=== PATIENT | female | born 1980 | race Two or more races ===

== ENCOUNTER 2024-06-07 15:25 | Emergency (ER) | payer OTHER, SELFPAY ==
--- NOTE | 2024-06-07 15:28 | EKG_ITS ---
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
[2024-06-07 15:29] VITALS: BP 123/81; PULSE 90; RESP 16; TEMP 37.1; O2SAT 97
--- NOTE | 2024-06-07 15:29 | PD.EDADULT ---
ED General RME/HPI General Stated complaint: SYNCOPAL EPISODE Time Seen by Provider: 06/07/24 15:27 Arrival date/time: 06/07/24 15:25 RME / HPI RME / HPI narrative: Patient is a 44-year-old who was at home had a sudden onset of weak and dizziness and passed out for 15 seconds witnessed by family. They lowered her down there was no injury. After the event she woke up and vomited 1 time. Patient denies any chest pain no shortness of breath there is no injury or trauma. She has never had any history of syncope in the past. She did have a tooth extraction at 1030 this morning and was started on amoxicillin which she took approximately an hour before the syncopal event. There is no seizure activity noted. There is no other symptom. There is no fever cough runny nose. And in the ambulance bay she says she feels much better. Related Data Allergies Allergy/AdvReac Type Severity Reaction Status Date / Time No Known Allergies Allergy Verified 06/07/24 16:22 Review of Systems Review of Systems Narrative Review of Systems: Review of Systems: Constitutional: DENIES: Fevers,; Eyes: DENIES: Loss of vision, Head/Ear/Nose: DENIES: Loss of hearing. Throat: Denies dysphagia. Cardiovascular: Denies chest pain, Dyspnea o. Respiratory: DENIES: Shortness of breath, Gastrointestinal: DENIES: Rectal bleeding or melena. Genitourinary: DENIES: Dysuria (painful or difficult urination),; Musculoskeletal: DENIES: Arthralgia (pain in a joint),; Skin: DENIES: Rash,; Neurological: DENIES: loss of function or movement,; Psychiatric: DENIES: recent major life stressor, emotional problem, illicit drug use or abuse,; Endocrinology: DENIES: Weight change,; Hematologic/Lymphatic: DENIES: Abnormal bruising. Allergic/Immunologic: DENIES: Urticaria (hives), Past Medical History Social History SMOKING STATUS: Never smoker ED Exam Narrative Physical exam: Physical Exam: General: The vital signs were reviewed. The patient is non-toxic, in no apparent distress and appears healthy with a patent airway, no respiratory distress and has no apparent circulatory problems. Head & Scalp: Normocephalic, atraumatic. Face: Appears normal and is without lesions, deformity. Ears: Left external pinna appears normal. Right external pinna appears normal. Eyes: The sclera is anicteric. No obvious photophobia. The Left and Right Orbit/Lid/Conjunctiva appears normal without swelling, discoloration or injection. Nose: The nose is without deformity, discharge or tenderness; Throat: Appears normal. The mucous membranes are pink and moist without exudates, redness or mass seen. The tongue appears normal. Neck: The neck is supple and no apparent mass or adenopathy. Chest: The chest wall is normal in size and symmetry and has no chest wall tenderness or crepitus. The patient displays normal ventilator effort without retractions, accessory muscle use and has adequate air movement bilaterally with no wheezes and no rales. Cardiovascular: Regular rate and rhythm; No murmurs, rubs, or gallops; Gastrointestinal: The abdomen appears normal. No obvious hernias or mass. The abdomen is soft and benign, non-distended, with no pain, no guarding and no rebound tenderness. Bowel sounds are present and normal sounding. No CVA tenderness. Genitourinary: Back/Spine: Nontender Extremities/Musculoskeletal/lymphatic: The bilateral upper and lower extremities are warm. There is no evidence of arterial insufficiency. There is no evidence of venous insufficiency/edema. The patient spontaneously moves bilateral upper and lower extremities with no pain and no limitation of movement. There is no apparent, injury or trauma. Skin: The skin is warm, dry and intact. No rashes. No petechia. No purpura. No abnormal bruising. The color is appropriate with no cyanosis. Mental status/Psychiatric: Mental status is appropriate for age. The patient has no apparent delusions, visual hallucinations, no apparent audible hallucinations. The patient has no apparent suicidal thoughts/ideation and no apparent homicidal thoughts/ideation. Neurological: The patient is awake, alert, interactive, cordial, cooperative and is oriented to name and situation. The patient follows commands and answers historical question with no impairment. There is no visual disturbance apparent. The pupils are equal and reactive bilaterally with normal eye movements and no diplopia The bilateral upper and lower extremities have normal strength, normal range of motion and normal functioning. The gait, station and balance were not tested initially in the ambulance bay. Course Quality Measures none Orders Category Date Time Status EKG (ED ONLY) *Do not use* NOW Care 06/07/24 15:28 Completed EKG (ED Only) Stat Exams 06/07/24 15:28 Ordered XR chest 1V portable Stat Exams 06/07/24 15:28 Completed B-Type Natriuretic Peptide Stat Lab 06/07/24 16:01 Completed CBC Stat Lab 06/07/24 16:01 Completed Comprehensive Metabolic Panel Stat Lab 06/07/24 16:01 Completed Drug Screen,Urine Stat Lab 06/07/24 15:28 Ordered HCG Qualitative,Urine Stat Lab 06/07/24 15:28 Ordered Lactate (Lactic Acid) Stat Lab 06/07/24 16:01 Completed Lipase Stat Lab 06/07/24 16:01 Completed Magnesium Stat Lab 06/07/24 16:01 Completed Troponin I Stat Lab 06/07/24 16:01 Completed Urinalysis Stat Lab 06/07/24 15:28 Ordered Urinalysis, C/S if Indicated Stat Lab 06/07/24 15:28 Ordered Ringers Lactated 1000 ml [Lactated Ringers] 1,000 ml Med 06/07/24 15:27 Discontinued IV 999 mls/hr Vital Signs Vital signs: Vital Signs Temperature 98.7 F 06/07/24 15:29 Pulse Rate 90 06/07/24 15:29 Respiratory Rate 16 06/07/24 15:29 Blood Pressure 123/81 06/07/24 15:29 Pulse Oximetry (%) 97 06/07/24 15:29 Oxygen Delivery Method Room Air 06/07/24 15:29 [facility] Patient data External records reviewed:: [facility] previous records (Per EMR, no previous visits for review) and EMS form Clinical information provided by:: patient and EMS Social determinants that could affect healthcare access:: none Patient has the following chronic illnesses:: none reported How is presenting disease/condition affected by chronic disease/condition?: no chronic disease Evaluation data The following diagnostics were reviewed and interpreted by me:: lab results, radiology exam(s) and EKG tracing(s) (Twelve-lead EKG reveals normal sinus rhythm rate [address] elevation VT. QT intervals are within normal limits.) Lab and/or radiology exams considered but not ordered:: None Interpretation Summary: Ordering Physician: Heriberto Smith MD Date of Service: 06/07/24 Procedure(s): XR chest 1V portable Accession Number(s): [id number] cc: Gaetano Tucker MD; Heriberto Smith MD~ EXAMINATION: XR chest 1V portable ORDERING PROVIDER: Heriberto Smith MD HISTORY: CHEST PAIN TECHNIQUE: Single portable AP radiograph of the chest. COMPARISON: None. FINDINGS: Lines and Tubes: None. Lungs: Clear. Pleura: No pneumothorax or pleural effusion. Cardiomediastinal Silhouette: Normal. Soft Tissues/Bones: Normal. IMPRESSION: No acute pulmonary findings. Dictated By: Gaetano Tucker MD Signed By: <Electronically signed by Gaetano Tucker MD in OV> 06/07/241643 DD/ 42 TD/TT: 06/07/241642 Auxiliary Engineer: JAVED Medications Medications considered but not ordered:: none Medication administrations:: Medication Administration History Discontinued Medications Lactated Ringer's (Lactated Ringers) 1,000 mls @ 999 mls/hr IV .Q1H1M ONE Stop: 06/07/24 16:27 see above Consultations Consultation(s) initiated? (list below): No Diagnosis Differential Diagnosis ED Complaint MDM: suncope, adverse reaction to medication, anxiety, dehydration, anemia, VT Most likely diagnosis given after review of the tests above:: syncope Admission Indicated Admission indicated?: not indicated Explain why admission is indicated or not indicated:: This can be worked up as an outpatient patient probably had a vasovagal syncopal event but clinically is stable looks great Admission Request Was there a request for admission?: No Disposition Plan Disposition Plan: Discharge Discharge Attestation Discharge Attestation: The patient and all family members were given an opportunity to ask questions and understood the discharge instructions. Discharge instructions specifically effects, indications for sooner follow up or return to the emergency department, and the expected course of current diagnosis. Patient condition: Stable Medical Decision Making MDM Narrative MDM Narrative: Patient had a 15-second episode of loss of consciousness and a syncopal event witnessed by family. She has no injury. She has no sequelae other than vomiting after the event. She had no precipitating symptoms there was no nausea vomiting diarrhea. There is no previous history of syncope. She has no known cardiac problem there is no GI bleeding by history. The cause of her syncope is unclear at this time and we will do a medical workup and reevaluate. Patient was observed in room 27 in the hallway as we had no other beds in. She was comfortable throughout the whole time her white count came back at 10.9 hemoglobin 16.8. Electrolytes came back normal kidney function was normal glucose 107 lactic acid 1.7 AST total bilirubin within normal limits troponin was negative BNP was negative Chest x-ray reveals no infiltrates no effusion normal heart. Patient had no further symptoms feels good wants to go home. She got up and ambulate without any difficulty. She knows no driving no rough work no climbing on ladders will follow-up with her doctor to 3 days and return if getting worse in any way. Differential Diagnosis Differential Diagnosis: suncope, adverse reaction to medication, anxiety, dehydration, anemia, VT Lab Data 06/07/24 16:01 06/07/24 16:01 Labs: Lab Results 06/07/24 Range/Units 16:01 WBC 10.9 (3.6-11.0) Thou/mm3 RBC 5.31 H (4.00-5.20) Miln/mm3 Hgb 16.8 H (12.0-16.0) g/dL Hct 47.3 H (36.0-46.0) % MCV 89 (80-100) fL MCH 31.6 (25.0-35.0) pg MCHC 35.5 (31.0-37.0) g/dl RDW Std Deviation 41.8 (36.4-46.3) fL Plt Count 340 (140-440) Thou/mm3 Neut % (Auto) 67 (37-80) % Lymph % (Auto) 21 (10-50) % Louisa % (Auto) 10 (0-12) % Eos % (Auto) 2 (0-10) % Baso % (Auto) 1 (0-2.5) % Neut # (Auto) 7.3 (1.8-7.7) Thou/mm3 Lymph # (Auto) 2.2 (1.0-4.8) Thou/mm3 Louis[place] # (Auto) 1.1 H (0.0-0.8) Thou/mm3 Eos # (Auto) 0.2 (0.0-0.5) Thou/mm3 Baso # (Auto) 0.1 (0.0-0.2) Thou/mm3 Immature Gran # (Auto) 0.02 H (0.00-0.00) Thou/mm3 Absolute Nucleated RBC 0.00 (0.00-0.00) Thou/mm3 Immature Gran % 0 (0-0) % Nucleated RBC % 0 (0) /100 WBC Sodium 136 (136-145) mMol/L Potassium 4.0 (3.4-5.1) mMol/L Chloride 100 (98-107) mMol/L Carbon Dioxide 23.2 (20.0-31.0) mMol/L Anion Gap 13 (7-16) BUN 13 (9-23) mg/dL Creatinine 1.0 (0.6-1.3) mg/dL Estim Creat Clear Calc 65.2 (>60) mL/min eGFR > 60 (60 - ) See Note BUN/Creatinine Ratio 13 (12-20) Ratio Glucose 107 H (74-106) mg/dL Calculated Osmolality 272 L (275-295) Lactic Acid 1.7 (0.4-2.0) mMol/L Calcium 10.1 (8.3-10.6) mg/dL Corrected Calcium 10.1 (8.5-10.1) mg/dL Magnesium 2.0 (1.6-2.6) mg/dL Total Bilirubin 0.6 (0.3-1.2) mg/dL AST 23 (0-34) U/L ALT 36 (10-49) U/L Alkaline Phosphatase 127 H (46-116) U/L Troponin I < 0.002 (0.0-0.045) ng/mL B-Natriuretic Peptide < 20 (0-100) pg/mL Total Protein 7.8 (5.7-8.2) gm/dL Albumin 5.1 H (3.5-5.0) gm/dL Globulin 2.7 (2.3-3.5) gm/dL Albumin/Globulin Ratio 1.9 (1.2-2.2) Lipase 42 (12-53) U/L Discharge Plan Plan Patient Disposition: HOME (Self Care) Problem List Clinical Impression: Syncope, H/O tooth extraction Patient/Caregiver Discharge Instructions Education Materials: ED Dizziness or Syncope ... Additional Instructions: You had an episode of passing out or syncope. The cause of this for you is uncertain. Your medical workup today revealed the chest x-ray and EKG which were entirely normal your heart enzymes were negative. And your symptoms have resolved after observation here. As they discussed no driving no climbing on ladders no rough work and stay on ground level and please return if you have another episode of passing out. See your doctor in 2 to 3 days. At that point that your doctor reevaluate you decide if you are safe to drive. Make sure you hydrate yourself well. Follow the advice of your dentist and take the antibiotics as written. If you are having cramps or getting worse in any way call your dentist or return for reevaluation. Print Language: Bulgarian Stand Alone Forms: Patient Portal Info Letter
[2024-06-07 16:19] VITALS: PULSE 84; RESP 18; BMI 28.9
[2024-06-07 16:25] LABS: Lactate (Lactic Acid) 1.7 mMol/L (0.4-2.0)
[2024-06-07 16:29] LABS: Basophils # (Auto) 0.1 Thou/mm3 (0.0-0.2); Basophils % (Auto) 1 % (0-2.5); Eosinophils # (Auto) 0.2 Thou/mm3 (0.0-0.5); Eosinophils % (Auto) 2 % (0-10); Hematocrit 47.3 % (36.0-46.0); Hemoglobin 16.8 g/dL (12.0-16.0); Immature Granulocytes % (Auto) 0 % (0-0); Immature Granulocytes Auto 0.02 Thou/mm3 (0.00-0.00); Lymphocytes # (Auto) 2.2 Thou/mm3 (1.0-4.8); Lymphocytes % (Auto) 21 % (10-50); Mean Corpuscular HGB Conc 35.5 g/dl (31.0-37.0); Mean Corpuscular Hemoglobin 31.6 pg (25.0-35.0); Mean Corpuscular Volume 89 fL (80-100); Monocytes # (Auto) 1.1 Thou/mm3 (0.0-0.8); Monocytes % (Auto) 10 % (0-12); Neutrophils # (Auto) 7.3 Thou/mm3 (1.8-7.7); Neutrophils % (Auto) 67 % (37-80); Nucleated Red Blood Cell % 0 /100 WBC (0); Platelet Count 340 Thou/mm3 (140-440); RDW Standard Deviation 41.8 fL (36.4-46.3); Red Blood Count 5.31 Miln/mm3 (4.00-5.20); White Blood Count 10.9 Thou/mm3 (3.6-11.0)
[2024-06-07 16:41] LABS: B-Type Natriuretic Peptide < 20 pg/mL (0-100)
[2024-06-07 16:42] LABS: Alanine Aminotransferase 36 U/L (10-49); Albumin, Serum 5.1 gm/dL (3.5-5.0); Albumin/Globulin Ratio 1.9 (1.2-2.2); Alkaline Phosphatase 127 U/L (46-116); Anion Gap 13 (7-16); Aspartate Amino Transferase 23 U/L (0-34); BUN/Creatinine Ratio 13 Ratio (12-20); Bilirubin,Total 0.6 mg/dL (0.3-1.2); Blood Urea Nitrogen 13 mg/dL (9-23); Calcium 10.1 mg/dL (8.3-10.6); Calcium (Corrected) 10.1 mg/dL (8.5-10.1); Carbon Dioxide 23.2 mMol/L (20.0-31.0); Chloride 100 mMol/L (98-107); Estimated Creatinine Clearance 65.2 mL/min (>60); Globulin 2.7 gm/dL (2.3-3.5); Glucose 107 mg/dL (74-106); Lipase 42 U/L (12-53); Osmolality,Calculated 272 (275-295); Sodium 136 mMol/L (136-145); Total Protein 7.8 gm/dL (5.7-8.2); Troponin I < 0.002 ng/mL (0.0-0.045); eGFR > 60 See Note
== END 2024-06-07 19:00 | disposition home or self-care (01) ==
LOC: SERX 18:11
PROVIDERS: Emergency Provider Emergency Medicine; PCP Family Medicine
DX: R55 Syncope and collapse (principal); R07.9 Chest pain, unspecified; K08.409 Partial loss of teeth, unspecified cause, unspecified class
CPT/HCPCS: 36415; 71045; 80053; 80307; 81001; 81025; 83605; 83690; 83735; 83880; 84484; 85025; 93005; 99283

== ENCOUNTER 2024-11-05 02:23 | Emergency (ER) | payer OTHER, SELFPAY ==
--- NOTE | 2024-11-05 02:28 | EDNOTE_ITS ---
ED Arrhythmia Palp. RME/HPI General Chief Complaint: Arrhythmia/Palpitations Stated Complaint: PALPITATIONS,HYPERTENSION Time Seen by Provider: 11/05/24 02:40 Arrival date/time: 11/05/24 02:23 RME / HPI RME / HPI narrative: This section includes all my notes and documentations, including HPI, PE, and ED course. 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 No other complaints. ROS: All negative except as documented in HPI. Physical Exam: General: Alert and oriented. Apears anxious. High BP noted. Eyes: Conjunctivae and lids clear. PERRL. EOMI. ENT: No nasal congestion. Neck: Supple. No carotid bruit. No JVD. Heart: Sinus tachycardia noted. Lungs: No respiratory distress. Good air movement. No rhonchi, wheezing, rales. Abdomen: Soft and nontender. Legs: Edema noted. Skin: Warm and dry. Neuro: Alert and oriented X 3. CN 2-12 grossly normal. No peripheral motor deficits. I reviewed EMS notes. I reviewed all diagnostic test results: My interpretation of the EKG is: Sinus tachycardia (120 bpm) with nonspecific ST-T changes. My interpretation of the chest x-ray is NAD. My review of the Chest CTA report is: NAD. My review of the Head/Brain CT report is: NAD. My review of the Venous Doppler LE US report is: NAD. Blood tests and urine tests unremarkable. At this point, diagnoses include: Hypertensive emergency. Treatment here included: Xanax 0.5 mg, Catapres 0.3 mg, Lopressor 100 mg, IVF. Significant improvement noted. Recommended outpatient management. Discharge instructions from Dr. Reed: 1. After extensive evaluation, there is no life-threatening condition.? Such as stroke or brain tumor or heart attack or pulmonary embolism (blood clots in your lungs) or pneumothorax (collapsed lung). 2. To prevent future heart attacks and strokes, take all your more morning BP medications starting tomorrow morning. 3. Take Clonidine 0.1 mg pill(s) every 12 hours as needed based on SBP (higher number of BP). SBP > 140, take one pill. SBP > 160, take two pills. SBP > 180, take three pills. SBP > 200, take four pills. 4. Xanax for anxiety. But only 2-3 times per week to prevent dependence. 5. See a private doctor on 11/08/2024 for recheck and further care. Ask to review all test results and official radiology reports, to make sure you receive all necessary follow-ups and monitoring. To make sure there is no serious underlying heart condition, ask to help you get more tests for your heart that cannot be done here in the ER.? Such as Holter Monitor (cardiac monitoring at home from a day to even a month), heart stress test (on treadmill or with medication), echocardiogram (imaging of your heart structures), heart catherization (checking for blockages in your heart arteries), and a referral to see a Seed Collector.? 6. Seek immediate medical care with worsening or with any concerns.?? Jesus Reed MD Related Data Previous Rx's ?Medication ?Instructions ?Recorded alprazolam 0.5 mg tablet (Xanax) 0.5 mg PO BID PRN anx iety #20 tabs 11/05/24 clonidine HCl 0.1 mg tablet 0.1 mg PO BID #60 tabs 11/22 Allergies Allergy/AdvReac Type Severity Reaction Status Date / Time No Known Allergies Allergy Verified 11/05/24 02:33 Review of Systems Review of Systems Systems Reviewed: All systems reviewed, normal except as documented Past Medical History Past Medical History CARDIAC: Positive Cardiac Disorders and Hypertension Social History SMOKING STATUS: Never smoker ED Exam Narrative Physical exam: Refer to HPI Course Course Course Narrative: CXR is ordered for determining the etiology of shortness of breath. Quality Measures none Arrhythmia/Palpitations MDM Narrative MDM Narrative:: Scribe Attestation: I, Maria Luz Lynn, am scribing for and in the presence of Dr. Reed. Provider Notation: Although this document has been carefully reviewed, there may still be some phonetic and other typographical errors.? These errors are purely grammatical due to imperfections in the software program and should not be construed in any way to? compromise the substance of the patient's medical care during this visit. 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 No other complaints. Patient data External records reviewed:: [facility] previous records (Reviewed prior ED records from 06/07/24. Patient was seen for H/O tooth extraction.) and EMS form Clinical information provided by:: patient and EMS Social determinants that could affect healthcare access:: none Patient has the following chronic illnesses:: None reported How is presenting disease/condition affected by chronic disease/condition?: no chronic disease Evaluation data The following diagnostics were reviewed and interpreted by me:: lab results, radiology exam(s) and EKG tracing(s) (My interpretation of the EKG is: Sinus tachycardia (120 bpm) with nonspecific ST-T changes. Jesus Reed MD) Lab and/or radiology exams considered but not ordered:: None Interpretation Summary: I reviewed all diagnostic test results: My interpretation of the EKG is: Sinus tachycardia (120 bpm) with nonspecific ST-T changes. My interpretation of the chest x-ray is NAD. My review of the Chest CTA report is: NAD. My review of the Head/Brain CT report is: NAD. My review of the Venous Doppler LE BI US report is: NAD. Blood tests and urine tests unremarkable. Medications / Prescriptions Medications or Prescriptions considered but not ordered:: None Medication administrations:: Xanax 0.5 mg, Catapres 0.3 mg, Lopressor 100 mg, IVF. Consultations Consultation(s) initiated? (list below): No Diagnosis Differential diagnosis arrhythmia/palpitations: palpitations, anxiety, sinus tachycardia, artial fibrillation, artial flutter, ventricular premature beats, supraventricular tachycardia and ventricular tachycardia Most likely diagnosis given after review of the tests above:: Hypertensive emergency Admission Indicated Admission indicated?: not indicated Explain why admission is indicated or not indicated:: With significant improvement, admission not indicated. Admission Request Was there a request for admission?: No Disposition Plan Disposition Plan: Discharge Discharge Attestation Discharge Attestation: The patient and all family members were given an opportunity to ask questions and understood the discharge instructions. Discharge instructions specifically effects, indications for sooner follow up or return to the emergency department, and the expected course of current diagnosis. Patient condition: Stable Discharge Plan Plan Patient Disposition: HOME (Self Care) Prescriptions/Referrals Prescriptions/Med Rec: New clonidine HCl 0.1 mg tablet 0.1 mg PO BID Qty: 60 0RF alprazolam [Xanax] 0.5 mg tablet 0.5 mg PO BID PRN (Reason: anxiety) Qty: 20 0RF Referrals: Lambert Bui MD [Primary Care Provider] - In 1 week Problem List Clinical Impression: Hypertensive emergency Patient/Caregiver Discharge Instructions Discharge Activity: activity as tolerated Education Materials: ED Hypertension, Established Additional Instructions: Discharge instructions from Dr. Reed: 1. After extensive evaluation, there is no life-threatening condition.? Such as stroke or brain tumor or heart attack or pulmonary embolism (blood clots in your lungs) or pneumothorax (collapsed lung). 2. To prevent future heart attacks and strokes, take all your more morning BP medications starting tomorrow morning. 3. Take Clonidine 0.1 mg pill(s) every 12 hours as needed based on SBP (higher number of BP). SBP > 140, take one pill. SBP > 160, take two pills. SBP > 180, take three pills. SBP > 200, take four pills. 4. Xanax for anxiety. But only 2-3 times per week to prevent dependence. 5. See a private doctor on 11/08/2024 for recheck and further care. Ask to review all test results and official radiology reports, to make sure you receive all necessary follow-ups and monitoring. To make sure there is no serious underlying heart condition, ask to help you get more tests for your heart that cannot be done here in the ER.? Such as Holter Monitor (cardiac monitoring at home from a day to even a month), heart stress test (on treadmill or with medication), echocardiogram (imaging of your heart structures), heart catherization (checking for blockages in your heart arteries), and a referral to see a Seed Collector.? 6. Seek immediate medical care with worsening or with any concerns.?? Print Language: Swedish Stand Alone Forms: Nancy Award Info., Patient Portal Info Letter
[2024-11-05 02:30] VITALS: PULSE 127
--- NOTE | 2024-11-05 02:32 | EKG_ITS ---
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
[2024-11-05 02:33] VITALS: BMI 32.1
--- NOTE | 2024-11-05 02:37 | XR_ITS ---
Examination: AP chest single view Technique one AP portable upright chest single view Date and time: November 15, 2024 0324 hours INDICATIONS: Shortness of breath chest pain today. FINDINGS: Left cardiac apex fat pad. Normal heart size The osseous structures are intact No pneumonia or pulmonary edema IMPRESSION: No pneumonia or pulmonary edema
--- NOTE | 2024-11-05 02:37 | XR_ITS ---
Examination: CT brain head without contrast. 2-D sagittal coronal reconstructions Date and time of exam:October, 2024, 0425 hours INDICATIONS: High blood pressure today with head pain CTDI: vol (mGy):48 DLP: (mGycm):990 Technique: Multiple CT axial sections of the brain have been obtained, 5 mm slice thickness. Contrast has not been administered. 2-D sagittal, coronal reconstructions have been obtained Low dose protocols were performed. One or more of the following dose reduction techniques were used; automated exposure control, adjustment of the mA and/or KV according to patient size, use of iterative reconstruction technique. Findings: No significant ventricular enlargement. Intra-axial or extra-axial hemorrhage density is not seen. No mass effect or midline shift Basal cisterns are not remarkable. Fourth ventricle is midline. Cranial vault intact. Impression: Negative for acute hemorrhage, mass effect or midline shift Moderate bilateral chronic mastoiditis
--- NOTE | 2024-11-05 02:38 | XR_ITS ---
Examination: CTA chest with intravenous contrast 2-D reconstructions 3-D reconstructions, vascular Date and time of exam: November 05, 2024 0436 hours INDICATION: Chest pain and cardiac palpitations shortness of breath today CTDI: vol (mGy) 35.36. DLP: (mGycm) 611. Technique: Multiple axial sections of the thorax have been obtained. 3 mm slice thickness, from below the hemidiaphragms to above the apices of the lungs. Mediastinal and lung density settings have been obtained. 2-D sagittal and coronal reconstructions. 3-D angiographic renderings, 3-D volume renderings, 3D post processing, vascular maximum intensity projections obtained. Contrast administered is 100 cc Isovue 370. Low dose protocols were performed. One or more of the following dose reduction techniques were used; automated exposure control, adjustment of the mA and/or KV according to patient size, use of iterative reconstruction technique. Findings: No thoracic aortic aneurysm dilatation or dissection. No pulmonary artery filling defects No mediastinal lymphadenopathy. No pneumonia or pulmonary edema or pleural disease No visualized liver splenic lesion No gallstones No pancreatic or adrenal mass Kidneys partially visualized no hydronephrosis IMPRESSION: Negative for pulmonary artery emboli No pneumonia or pulmonary edema or pleural disease
--- NOTE | 2024-11-05 02:39 | XR_ITS ---
Examination: Venous duplex lower extremity sonogram, bilateral. Date and time of exam: November 15, 2024 0301 hours INDICATIONS: Leg edema and elevated d-dimer today Technique: Multiple sonographic images of the deep venous system have been obtained. B-mode/2-D grayscale imaging of vascular structures and Doppler spectral analysis (waveforms) and color performed Both legs are examined. Findings: Deep venous systems do not demonstrate abnormal echogenicity. All visualized deep veins exhibit compressibility. All visualized deep veins exhibit augmentation. Impression: Negative for deep vein thrombosis
[2024-11-05 02:44] VITALS: BP 178/119; BP 199/129; PULSE 125; RESP 19; TEMP 37; O2SAT 100
[2024-11-05 02:54] LABS: Basophils # (Auto) 0.1 Thou/mm3 (0.0-0.2); Basophils % (Auto) 1 % (0-2.5); Eosinophils # (Auto) 0.3 Thou/mm3 (0.0-0.5); Eosinophils % (Auto) 3 % (0-10); Hematocrit 41.8 % (36.0-46.0); Hemoglobin 15.0 g/dL (12.0-16.0); Immature Granulocytes Auto 0.02 Thou/mm3 (0.00-0.00); Lymphocytes # (Auto) 3.3 Thou/mm3 (1.0-4.8); Lymphocytes % (Auto) 34 % (10-50); Mean Corpuscular HGB Conc 35.9 g/dl (31.0-37.0); Mean Corpuscular Hemoglobin 32.4 pg (25.0-35.0); Mean Corpuscular Volume 90 fL (80-100); Monocytes # (Auto) 0.8 Thou/mm3 (0.0-0.8); Monocytes % (Auto) 8 % (0-12); Neutrophils # (Auto) 5.1 Thou/mm3 (1.8-7.7); Neutrophils % (Auto) 54 % (37-80); Nucleated Red Blood Cell # 0.00 Thou/mm3 (0.00-0.00); Nucleated Red Blood Cell % 0 /100 WBC (0); Platelet Count 270 Thou/mm3 (140-440); RDW Standard Deviation 43.5 fL (36.4-46.3); Red Blood Count 4.63 Miln/mm3 (4.00-5.20); White Blood Count 9.6 Thou/mm3 (3.6-11.0)
[2024-11-05 03:04] VITALS: BP 178/119; PULSE 125
[2024-11-05] MEDS: METOPROLOL TARTRATE 25 MG TABLET 100 MG PO (03:04)
[2024-11-05 03:05] VITALS: BP 178/119; PULSE 125
[2024-11-05] MEDS: SODIUM CHLORIDE 0.9% 1000 ML 1,000 ML 999 ML IV (03:07)
[2024-11-05 03:08] LABS: INR 1.0 (0.9-1.3); Partial Thromboplastin Time 28.5 Seconds (22.0-36.0); Prothrombin Time 11.1 Seconds (9.0-12.2)
[2024-11-05 03:15] LABS: Alanine Aminotransferase 21 U/L (10-49); Albumin, Serum 4.7 gm/dL (3.5-5.0); Albumin/Globulin Ratio 2.0 (1.2-2.2); Alkaline Phosphatase 124 U/L (46-116); Anion Gap 11 (7-16); Aspartate Amino Transferase 15 U/L (0-34); BUN/Creatinine Ratio 15 Ratio (12-20); Bilirubin,Direct 0.2 mg/dL (0.0-0.3); Bilirubin,Total 0.7 mg/dL (0.3-1.2); Blood Urea Nitrogen 12 mg/dL (9-23); Calcium 9.4 mg/dL (8.3-10.6); Calcium (Corrected) 9.4 mg/dL (8.5-10.1); Carbon Dioxide 22.0 mMol/L (20.0-31.0); Chloride 108 mMol/L (98-107); Creatinine (Component) 0.8 mg/dL (0.6-1.3); Estimated Creatinine Clearance 82.6 mL/min (>60); Free T4 (Free Thyroxine) 1.31 ng/dL (0.89-1.76); Globulin 2.3 gm/dL (2.3-3.5); Glucose 113 mg/dL (74-106); Magnesium 1.9 mg/dL (1.6-2.6); Osmolality,Calculated 281 (275-295); Potassium 3.5 mMol/L (3.4-5.1); Sodium 141 mMol/L (136-145); Thyroid Stimulating Hormone 2.19 uIU/mL (0.55-4.78); Total Protein 7.0 gm/dL (5.7-8.2); Troponin I < 0.002 ng/mL (0.0-0.045); eGFR > 60 See Note
[2024-11-05 03:21] LABS: HCG,Qualitative Serum Negative
[2024-11-05 03:36] LABS: D-Dimer < 250 ng/mL (<600)
--- NOTE | 2024-11-05 03:55 | PRELIM_ITS ---
Bilateral lower extremity venous Doppler ultrasound. November 05, 2024 0301 hours Clinical history: EDEMA HIGH DIMER Comparison: None Findings: Mckenzie scale, color flow and spectral Doppler evaluation of the Bilateral lower extremity deep veins were performed. The greater saphenous vein confluence, common femoral, femoral, popliteal and calf veins are patent and compressible. Normal respiratory variation is noted. There is no evidence of occlusive or nonocclusive thrombus. No fluid collection is demonstrated on the submitted images. Impression: No sonographic evidence of deep venous thrombosis in bilateral lower extremities. Report Electronically Signed By: Michele Burns 11/05/2024 3:55:09 AM [EST]
[2024-11-05 03:56] LABS: B-Type Natriuretic Peptide < 20 pg/mL (0-100)
[2024-11-05 04:21] LABS: Collection Type, Urine Clean Catch
[2024-11-05 04:44] LABS: Bilirubin,Urine Negative (Negative); Blood,Urine Negative (Negative); Clarity,Urine Clear (Clear/Hazy); Color,Urine Colorless (Lt Yel-Yel); Culture Indicated,Urine Not Indicated; Glucose, Urine Negative (Negative); Ketones,Urine Negative (Negative); Leukocyte Esterase,Urine Positive (Negative); Nitrite,Urine Negative (Negative); PH,Urine 6.5 (5.0-7.0); Protein,Urine Negative (Neg - Trace); RBC,Urine 1 /hpf (0-3); Specific Gravity,Urine 1.009 (1.001-1.035); Squamous Epithelial Cell,Urine < 1 /hpf (0-5); Urobilinogen,Urine Negative mg/dL (0.0-1.0); WBC,Urine 3 /hpf (0-5)
[2024-11-05 04:52] VITALS: BP 147/91; PULSE 84; RESP 16; TEMP 37.1; O2SAT 99
--- NOTE | 2024-11-05 05:00 | PRELIM_ITS ---
CT angiogram of the chest with intravenous contrast (axial sections with sagittal and coronal reformats) November 05, 2024 0426 hours Clinical History: Shortness of breath, chest pain, palpitations Technique:Helical axial sections with sagittal and coronal reformats of the chest were obtained with intravenous contrast. Iterative reconstruction technique was employed to reduce patient radiation exposure. 3D/MIP reconstructed images were also provided. Findings: There is no filling defect within the pulmonary artery divisions to suggest pulmonary thromboembolism. The mediastinum demonstrates no evidence of mass or lymphadenopathy. The thoracic aorta is unremarkable without dissection or aneurysm. There is no pericardial effusion. Subsegmental atelectasis is noted at the lung bases. The lungs are otherwise clear. No evidence of pleural effusion or pneumothorax. The osseous structures are unremarkable. The upper abdominal viscera are unremarkable to the extent visualized. Impression: 1. No evidence of acute pulmonary thromboembolism. 2. Other findings as described above. Suggest clinical correlation and follow up accordingly. Report Electronically Signed By: Luis Armando Hough 11/05/2024 4:59:20 AM [EST]
[2024-11-05 05:03] LABS: HCG Qualitative,Urine Negative
--- NOTE | 2024-11-05 05:06 | PRELIM_ITS ---
CT scan of the head without intravenous contrast (axial sections with sagittal and coronal reformats). November 05, 2024 0425 hours Clinical History: Headache and high blood pressure Comparison: No prior study is available for comparison. Findings: There is no evidence of intracranial hemorrhage, mass effect or midline shift. The ventricles and CSF spaces are unremarkable. The calvarium is unremarkable. The left mastoid air cells and the visualized paranasal sinuses are clear. There is partial opacification of the right mastoid air cells. Impression: No evidence of intracranial hemorrhage, mass effect or midline shift. Other findings as described above. Suggest clinical correlation and follow up accordingly. Report Electronically Signed By: Luis Armando Hough 11/05/2024 5:06:00 AM [EST]
[2024-11-05 05:29] VITALS: BP 129/85; PULSE 73; RESP 16; O2SAT 98
== END 2024-11-05 05:31 | disposition home or self-care (01) ==
PROVIDERS: Emergency Provider Emergency Medicine; PCP Family Medicine
DX: I16.1 Hypertensive emergency (principal); I10 Essential (primary) hypertension; R00.0 Tachycardia, unspecified; R51.9 Headache, unspecified; R07.9 Chest pain, unspecified; R06.02 Shortness of breath; R60.0 Localized edema
CPT/HCPCS: 36415; 70450; 71045; 71275; 80053; 81001; 81025; 82248; 83735; 83880; 84439; 84443; 84484; 84703; 85025; 85379; 85610; 85730; 93005; 93970; 96360; 99284; A4649; J7030; Q9967; A9270

== ENCOUNTER 2024-11-09 17:54 | Emergency (ER) | payer OTHER, SELFPAY ==
[2024-11-09] VITALS (11 sets, daily range): BP systolic 116–181; BP diastolic 97–114; PULSE 78–118; RESP 12–99; TEMP 36.7–37.1; O2SAT 96–98; BMI 28.7
--- NOTE | 2024-11-09 18:37 | EKG_ITS ---
[facility], [place] Test Date: 2024-11-09 Pat Name: JACQUIE NAVA Department: Room: - Gender: Female [employer]er: : 1980 Requested By: Scottie Chau Order Number: [id number] Reading MD: Scottie Chau Measurements Intervals [place] Rate: 100 P: 42 NV: 143 QRS: -30 QRSD: 85 T: 60 QT: 330 QTc: 426 Interpretive Statements SINUS TACHYCARDIA POSSIBLE LEFT ATRIAL ENLARGEMENT [-0.1mV P-WAVE IN V1/V2] LOW QRS VOLTAGE IN PRECORDIAL LEADS [QRS DEFLECTION < 1.0 mV IN CHEST LEADS] POSSIBLE ANTERIOR MYOCARDIAL INFARCTION , PROBABLY OLD [30 ms Q WAVE IN V3/V4, OR R < 0.2 mV IN V4] ABNORMAL RHYTHM ECG Compared to ECG 11/05/2024 02:39:01 Low QRS voltage now present Myocardial infarct finding now present ST (T wave) deviation no longer present /store/S0/[id number]/[id number].pdf
--- NOTE | 2024-11-09 18:47 | EDNOTE_ITS ---
ED Arrhythmia Palp. RME/HPI General Chief Complaint: Arrhythmia/Palpitations Stated Complaint: TACHYCARDIA Time Seen by Provider: 11/09/24 18:38 Arrival date/time: 11/09/24 17:54 RME / HPI RME / HPI narrative: Dr. Farah?s Main ED Evaluation: 44yo female with recent episode of palpitations/flushed sensation after having been seen 4 days WARD MAID and diagnosed with hypertensive episode in which patient was administered LUNA inhibitor, beta hitesh IV, and Xanax with improvement. Current episode lasted 10-15 minutes and markedly improved upon EMS arrival. Reports nausea without vomiting or chest pain. No lightheadedness, dizziness, or near syncope. Cardiac Risk Factors: +family history of heart disease and HTN (on lisinopril, HCTZ, and amlodipine); no tobacco use, hx of DM or HLD. PE Risk Factors: no recent prolonged immobilization, surgeries, or personal/familial history of DVT. +HRT. Social Hx: denies tobacco, alcohol, or illicit drug use. Surgical Hx: noncontributory Related Data Previous Rx's ?Medication ?Instructions ?Recorded alprazolam 0.5 mg tablet (Xanax) 0.5 mg PO BID PRN anx iety #20 tabs 11/05/24 clonidine HCl 0.1 mg tablet 0.1 mg PO BID #60 tabs 11/22 Allergies Allergy/AdvReac Type Severity Reaction Status Date / Time No Known Allergies Allergy Verified 11/09/24 18:01 Review of Systems Review of Systems Systems Reviewed: All systems reviewed, normal except as documented Past Medical History Past Medical History CARDIAC: Positive Cardiac Disorders and Hypertension; Negative Congestive Heart Failure RESPIRATORY: Negative Chronic Obstructive Pulmonary Disease (COPD) or Asthma GENITOURINARY: Negative Renal Disease ENDOCRINE: Negative Diabetes Mellitus Type 1 or Diabetes Mellitus Type 2 HEMATOLOGIC: Negative Sickle Cell Disease Social History SMOKING STATUS: Never smoker ED Exam Narrative Physical exam: GENERAL APPEARANCE: alert and oriented x 4, well-developed, well-nourished, appears apprehensive, no acute distress VITALS: All vitals were reviewed and the pulse ox is 98% on room air, which is normal according to my interpretation. Modestly hypertensive. HEENT: Normocephalic, atraumatic; pupils equal, round, reactive to light; EOMI; mucous membranes pink, moist; oropharynx clear NECK: Supple, no JVD LUNGS: CTABL; no wheezes, no rales, no rhonchi HEART: Tachycardic, regular rhythm; normal S1, S2; no murmurs ABDOMEN: non distended; soft, no tenderness BACK: no CVA tenderness EXTREMITIES: atraumatic; no edema; no calf tenderness NEUROLOGIC: awake; alert and oriented x4; cranial nerves II-XII grossly intact; no focal sensory or motor deficits PSYCHIATRIC: appropriate mood and affect SKIN: warm, dry, normal color; no rashes Course Course Course Narrative: CXR is ordered for determining the etiology of palpitations. Quality Measures none Orders Category Date Time Status EKG (ED ONLY) *Do not use* NOW Care 11/09/24 18:37 Completed EKG (ED Only) Stat Exams 11/09/24 18:37 Draft Vital Signs Vital signs: Vital Signs Temperature 98.0 F 11/09/24 17:57 Pulse Rate 118 H 11/09/24 17:57 Respiratory Rate 16 11/09/24 17:57 Blood Pressure 116/109 H 11/09/24 17:57 Pulse Oximetry (%) 96 11/09/24 17:57 Oxygen Delivery Method Room Air 11/09/24 17:57 Arrhythmia/Palpitations MDM Narrative MDM Narrative:: Scribe Attestation: 11/09/24 Vernell Gonzalez am scribing for and in the presence of Dr. Farah. 44yo female with recent episode of palpitations/flushed sensation after having been seen 4 days WARD MAID and diagnosed with hypertensive episode in which patient was administered LUNA inhibitor, beta hitesh IV, and Xanax with improvement. Current episode lasted 10-15 minutes and markedly improved upon EMS arrival. Please see PE findings. Lab markers including CBC, chemistries, troponin, and D- Dimer are all unremarkable. EKG shows sinus tachycardia without any accessory pathway noted. Patient placed on cardiac cath lab technologist, IV established, and received incremental doses of IV antihypertensive therapy and benzodiazepines with gradual normalization of vital signs. Will consider changing the patient's antihypertensive regimen by increasing amlodipine to 5mg BID. Patient was recently prescribed clonidine and is to take for rescue only. Patient is stable to be discharged home. Patient data External records reviewed:: [facility] previous records (Per chart review, patient was seen here on 11/05/24 for hypertensive emergency.) Clinical information provided by:: patient Social determinants that could affect healthcare access:: none Patient has the following chronic illnesses:: HTN How is presenting disease/condition affected by chronic disease/condition?: exacerbated by Evaluation data The following diagnostics were reviewed and interpreted by me:: lab results, radiology exam(s) and EKG tracing(s) Lab and/or radiology exams considered but not ordered:: none Interpretation Summary: EKG done at 1838, sinus tachycardia, rate of 100, no acute pathological ST segment changes, no ectopy, normal intervals, left axis deviation, according to my interpretation. Repeat CXR shows no infiltrate, no pleural effusions, no pneumothorax, according to my interpretation. [facility] Report Signed Patient: JACQUIE NAVA Record#: [id number] Birthdate: 1980 Age/Sex: 44 / F Location: [facility] Attending Dr: Ordering Physician: Nitin Cortes DO Date of Service: 11/09/24 Procedure(s): XR chest 1V portable Accession Number(s): [id number] cc: Nitin Cortes DO; Gordon Puckett PA-C; Alex Miller MD~ Examination: PA chest single view TECHNIQUE: Upright PA chest single view Date and time: November 09, 2024 1938 hours Comparison November 05, 2024 INDICATIONS: chest pain and tachycardia today. FINDINGS: Normal heart size Mild opacity at the left cardiac apex No pulmonary edema Intact osseous structures IMPRESSION: Recommend lateral chest film follow-up to differentiate scarring from pneumonia in the lingular segment left upper lobe Dictated By: Alex Miller MD Signed By: <Electronically signed by Alex Miller MD in OV> 11/09/24 2101 Medications / Prescriptions Medications or Prescriptions considered but not ordered:: none Medication administrations:: see above Consultations Consultation(s) initiated? (list below): No Diagnosis Differential diagnosis arrhythmia/palpitations: palpitations, anxiety, sinus tachycardia, artial fibrillation and artial flutter Most likely diagnosis given after review of the tests above:: accelerated hypertension Admission Indicated Admission indicated?: not indicated Admission Request Was there a request for admission?: No Disposition Plan Disposition Plan: Discharge Discharge Attestation Discharge Attestation: The patient and all family members were given an opportunity to ask questions and understood the discharge instructions. Discharge instructions specifically effects, indications for sooner follow up or return to the emergency department, and the expected course of current diagnosis. Patient condition: Stable Critical Care Time Critical Care Time Critical Care Time: Yes Total Critical Care Time (min.): 35 Attestation: The high probability of sudden, clinically significant deterioration in the patient?s condition required the highest level of my preparedness to intervene urgently. The services I provided to this patient were to treat and/or prevent clinically significant deterioration. Services included the following: chart data review, reviewing nursing notes and/or old charts, documentation time, media consultant outside sales collaboration regarding findings and treatment options, medication orders and management, direct patient care, vital sign assessments and ordering, interpreting and reviewing diagnostic studies and lab tests. Aggregate critical care time includes only time during which I was engaged in work directly related to the patient?s care, as described above, whether at bedside or elsewhere in the Emergency Department. It did not include time spent performing other reported procedures or the services of residents, students, nurses or physician assistants. Discharge Plan Plan Patient Disposition: HOME (Self Care) Discharge Disposition comment: STABLE Prescriptions/Referrals Prescriptions/Med Rec: No Action clonidine HCl 0.1 mg tablet 0.1 mg PO BID Qty: 60 0RF alprazolam [Xanax] 0.5 mg tablet 0.5 mg PO BID PRN (Reason: anxiety) Qty: 20 0RF Referrals: Gordon Puckett PA-C [Primary Care Provider] - In 1 week Problem List Clinical Impression: Palpitations, Accelerated essential hypertension Patient/Caregiver Discharge Instructions Discharge Activity: activity as tolerated Diet Instructions: Low-salt Education Materials: Understanding Heart Palpitations, ED Hypertension, Established, ED Palpitations Additional Instructions: Force fluids/maintain adequate rest/increase amlodipine from 5 mg twice daily and continue additional medications as directed. Use clonidine for rescue for persistently elevated blood pressure 170/100. Follow-up with primary care doctor and monitor blood pressure at home for the next 1 to 2 weeks. Return if worsening Print Language: Albanian Stand Alone Forms: Nancy Award Info., Patient Portal Info Letter
--- NOTE | 2024-11-09 19:04 | XR_ITS ---
Examination: PA chest single view TECHNIQUE: Upright PA chest single view Date and time: November 09, 2024 1938 hours Comparison November 05, 2024 INDICATIONS: chest pain and tachycardia today. FINDINGS: Normal heart size Mild opacity at the left cardiac apex No pulmonary edema Intact osseous structures IMPRESSION: Recommend lateral chest film follow-up to differentiate scarring from pneumonia in the lingular segment left upper lobe
[2024-11-09] MEDS: SODIUM CHLORIDE 0.9% 1000 ML 1,000 ML 999 ML IV (19:29)
[2024-11-09 19:35] LABS: Collection Type, Urine Clean Catch
[2024-11-09 19:46] LABS: Bilirubin,Urine Negative (Negative); Blood,Urine Negative (Negative); Clarity,Urine Clear (Clear/Hazy); Color,Urine Lt-Yellow (Lt Yel-Yel); Glucose, Urine Negative (Negative); Ketones,Urine Negative (Negative); Leukocyte Esterase,Urine Positive (Negative); Nitrite,Urine Negative (Negative); PH,Urine 6.0 (5.0-7.0); Protein,Urine Negative (Neg - Trace); RBC,Urine 3 /hpf (0-3); Specific Gravity,Urine 1.013 (1.001-1.035); Squamous Epithelial Cell,Urine 1 /hpf (0-5); Urobilinogen,Urine Negative mg/dL (0.0-1.0); WBC,Urine 11 /hpf (0-5)
[2024-11-09 19:51] LABS: Amphetamine/Methamp Scrn,U Negative (Negative); Barbiturate Screen,Urine Negative (Negative); Benzodiazepines Screen,Urine Negative (Negative); Benzoylecgonine Screen, Ur Negative (Negative); Fentanyl Screen,Urine Negative (Negative); Opiate Screen,Urine Negative (Negative); THC Screen,Urine Negative (Negative)
[2024-11-09 19:59] LABS: Basophils # (Auto) 0.1 Thou/mm3 (0.0-0.2); Basophils % (Auto) 0 % (0-2.5); Eosinophils # (Auto) 0.1 Thou/mm3 (0.0-0.5); Eosinophils % (Auto) 1 % (0-10); Hematocrit 47.9 % (36.0-46.0); Hemoglobin 16.9 g/dL (12.0-16.0); Immature Granulocytes Auto 0.03 Thou/mm3 (0.00-0.00); Lymphocytes # (Auto) 2.0 Thou/mm3 (1.0-4.8); Lymphocytes % (Auto) 17 % (10-50); Mean Corpuscular HGB Conc 35.3 g/dl (31.0-37.0); Mean Corpuscular Hemoglobin 31.7 pg (25.0-35.0); Mean Corpuscular Volume 90 fL (80-100); Monocytes # (Auto) 0.9 Thou/mm3 (0.0-0.8); Monocytes % (Auto) 8 % (0-12); Neutrophils # (Auto) 8.6 Thou/mm3 (1.8-7.7); Neutrophils % (Auto) 74 % (37-80); Nucleated Red Blood Cell # 0.00 Thou/mm3 (0.00-0.00); Nucleated Red Blood Cell % 0 /100 WBC (0); Platelet Count 307 Thou/mm3 (140-440); RDW Standard Deviation 42.5 fL (36.4-46.3); Red Blood Count 5.33 Miln/mm3 (4.00-5.20); White Blood Count 11.7 Thou/mm3 (3.6-11.0)
[2024-11-09 20:17] LABS: INR 1.1 (0.9-1.3); Partial Thromboplastin Time 29.3 Seconds (22.0-36.0); Prothrombin Time 11.5 Seconds (9.0-12.2)
[2024-11-09 20:24] LABS: Alanine Aminotransferase 22 U/L (10-49); Albumin, Serum 5.5 gm/dL (3.5-5.0); Albumin/Globulin Ratio 2.0 (1.2-2.2); Alkaline Phosphatase 130 U/L (46-116); Anion Gap 13 (7-16); Aspartate Amino Transferase 16 U/L (0-34); BUN/Creatinine Ratio 14 Ratio (12-20); Bilirubin,Total 0.6 mg/dL (0.3-1.2); Blood Urea Nitrogen 14 mg/dL (9-23); Calcium 10.3 mg/dL (8.3-10.6); Calcium (Corrected) 10.3 mg/dL (8.5-10.1); Carbon Dioxide 24.1 mMol/L (20.0-31.0); Chloride 101 mMol/L (98-107); Creatinine (Component) 1.0 mg/dL (0.6-1.3); Globulin 2.8 gm/dL (2.3-3.5); Glucose 115 mg/dL (74-106); Magnesium 1.8 mg/dL (1.6-2.6); Osmolality,Calculated 277 (275-295); Potassium 3.5 mMol/L (3.4-5.1); Sodium 138 mMol/L (136-145); Total Protein 8.3 gm/dL (5.7-8.2); Troponin I < 0.002 ng/mL (0.0-0.045); eGFR > 60 See Note
[2024-11-09 20:32] LABS: B-Type Natriuretic Peptide < 20 pg/mL (0-100)
[2024-11-09] MEDS: METOPROLOL TARTRATE INJ 1 MG/ML AMP 5 ML 2.5 MG IVP (20:37)
[2024-11-09 21:08] LABS: Magnesium 2.1 mg/dL (1.6-2.6); Thyroid Stimulating Hormone 1.04 uIU/mL (0.55-4.78)
[2024-11-09 21:13] LABS: D-Dimer 1610 ng/mL (<600)
[2024-11-09] MEDS: DIAZEPAM INJ 5 MG/ML VIAL 2 ML 2.5 MG IVP (22:05)
[2024-11-09] MEDS: LABETALOL INJ 5 MG/ML VIAL 20 ML 10 MG IVP (22:05)
--- NOTE | 2024-11-09 23:25 | XR_ITS ---
Examination: Lateral chest upright single view TECHNIQUE: lateral chest single view upright DATE: November 09, 2024 11:31 PM Comparison PA chest November 09, 2024 1930 hours INDICATIONS: Parenchymal disease in the lingular segment obscuring detail of cardiac contour on the PA film FINDINGS: Probable fat pad at the left cardiac apex No hilton pneumonia or pulmonary edema IMPRESSION: No hilton pneumonia or pulmonary edema
== END 2024-11-10 00:03 | disposition home or self-care (01) ==
PROVIDERS: Emergency Provider Emergency Medicine; PCP Physician Assistant
DX: R00.2 Palpitations (principal); I10 Essential (primary) hypertension
CPT/HCPCS: 36415; 71045; 80053; 80307; 81001; 83735; 83880; 84443; 84484; 85025; 85379; 85610; 85730; 93005; 96361; 96374; 96375; 99283; J3360; J3490; J7030; J1920

== ENCOUNTER 2024-11-12 15:29 | Emergency (ER) | payer OTHER, SELFPAY ==
[2024-11-12 15:30] VITALS: BMI 32.8
--- NOTE | 2024-11-12 15:33 | EKG_ITS ---
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
--- NOTE | 2024-11-12 15:37 | XR_ITS ---
Examination: PA chest single view TECHNIQUE: Upright PA chest single view Date and time: November 15, 2024 1612 hours INDICATIONS: Burning sensation in the chest. FINDINGS: Fat pad at the left cardiac apex. Normal heart size. No pneumonia or pulmonary edema The osseous structures are intact IMPRESSION: No interval pneumonia or pulmonary edema
[2024-11-12 15:38] VITALS: BP 163/96; PULSE 113; RESP 18; TEMP 37.2; O2SAT 97
--- NOTE | 2024-11-12 15:39 | PD.EDRME ---
Rapid Medical Screening Exam RME Arrival date/time: 11/12/24 15:29 Chief Complaint: Arrhythmia/Palpitations Time Seen by Provider: 11/12/24 15:34 Vital signs: Vital Signs Temperature 99 F 11/12/24 15:38 Pulse Rate 113 H 11/12/24 15:38 Respiratory Rate 18 11/12/24 15:38 Blood Pressure 163/96 H 11/12/24 15:38 Pulse Oximetry (%) 97 11/12/24 15:38 RME Narrative: Intermittent palpitations for the past week. Reports heartburn. Hx HTN
[2024-11-12 16:29] LABS: Basophils # (Auto) 0.1 Thou/mm3 (0.0-0.2); Basophils % (Auto) 0 % (0-2.5); Eosinophils # (Auto) 0.1 Thou/mm3 (0.0-0.5); Eosinophils % (Auto) 1 % (0-10); Hematocrit 47.7 % (36.0-46.0); Hemoglobin 16.9 g/dL (12.0-16.0); Immature Granulocytes Auto 0.04 Thou/mm3 (0.00-0.00); Lymphocytes # (Auto) 2.9 Thou/mm3 (1.0-4.8); Lymphocytes % (Auto) 22 % (10-50); Mean Corpuscular HGB Conc 35.4 g/dl (31.0-37.0); Mean Corpuscular Hemoglobin 32.1 pg (25.0-35.0); Mean Corpuscular Volume 91 fL (80-100); Monocytes # (Auto) 1.3 Thou/mm3 (0.0-0.8); Monocytes % (Auto) 10 % (0-12); Neutrophils # (Auto) 8.5 Thou/mm3 (1.8-7.7); Neutrophils % (Auto) 66 % (37-80); Nucleated Red Blood Cell # 0.00 Thou/mm3 (0.00-0.00); Nucleated Red Blood Cell % 0 /100 WBC (0); Platelet Count 304 Thou/mm3 (140-440); RDW Standard Deviation 41.6 fL (36.4-46.3); Red Blood Count 5.26 Miln/mm3 (4.00-5.20); White Blood Count 12.9 Thou/mm3 (3.6-11.0)
--- NOTE | 2024-11-12 16:35 | PD.EDARRY ---
ED Arrhythmia Palp. RME/HPI General Chief Complaint: Arrhythmia/Palpitations Stated Complaint: RAPID HEARTRATE Time Seen by Provider: 11/12/24 15:34 Source: patient Arrival date/time: 11/12/24 15:29 Mode of arrival: ambulatory Limitations: no limitations RME / HPI RME / HPI narrative: 44-year-old female here for evaluation of palpitations. States that she has been having episodes of elevated heart rate as well as elevated blood pressure at home on and off for the past week. Will also have periods of heartburn. Has a history of hypertension as well as GERD. Notes that she has a referral for cardiology for next Friday but comes in today for evaluation given the palpitations that she was having. Denies any shortness of breath or pain at this time Related Data Previous Rx's ?Medication ?Instructions ?Recorded alprazolam 0.5 mg tablet (Xanax) 0.5 mg PO BID PRN anxiety #20 tabs 11/05/24 clonidine HCl 0.1 mg tablet 0.1 mg PO BID #60 tabs 11/05/24 Allergies Allergy/AdvReac Type Severity Reaction Status Date / Time No Known Allergies Allergy Verified 11/12/24 15:32 Review of Systems Review of Systems Systems Reviewed: All systems reviewed, normal except as documented ED Exam Narrative Physical exam: Constitutional: Awake, alert, nontoxic, no acute distress, overweight HEENT: Normocephalic, atraumatic, extraocular movements intact. Neck: Supple CV: Regular rate and rhythm, no murmurs/rubs/gallops Lungs: Clear to auscultation BL, no respiratory distress. Abd: Soft, NT, ND, no HSM noted to palpation Neuro: AAOx3, no acute neuro deficit noted. Skin: Warm, dry, intact General Limitations: Present no limitations Course Course Course Narrative: 1800h: Patient is signed out to Dr. Michele pending labs. If unremarkable and vitally stable, will likely be able to discharge home to follow-up with cardiology as previously recommended next week. Quality Measures none Orders Category Date Time Status EKG (ED ONLY) *Do not use* NOW Care 11/12/24 15:33 Completed CXR [XR chest 1V] Stat Exams 11/12/24 15:37 Completed EKG (ED Only) Stat Exams 11/12/24 15:33 Draft BNP [B-Type Natriuretic Peptide] Stat Lab 11/12/24 16:08 Received CBC Stat Lab 11/12/24 16:08 Completed CMP [Comprehensive Metabolic Panel] Stat Lab 11/12/24 16:08 Received Free T4 (Free Thyroxine) Stat Lab 11/12/24 16:08 Received HCG,Qualitative Serum Stat Lab 11/12/24 16:08 Received Magnesium Stat Lab 11/12/24 16:08 Received TSH [Thyroid Stimulating Hormone] Stat Lab 11/12/24 16:08 Received Troponin I Stat Lab 11/12/24 16:08 Received Vital Signs Vital signs: Vital Signs Temperature 99 F 11/12/24 15:38 Pulse Rate 113 H 11/12/24 15:38 Respiratory Rate 18 11/12/24 15:38 Blood Pressure 163/96 H 11/12/24 15:38 Pulse Oximetry (%) 97 11/12/24 15:38 Arrhythmia/Palpitations Patient data External records reviewed:: None Clinical information provided by:: patient Social determinants that could affect healthcare access:: none Patient has the following chronic illnesses:: Hypertension How is presenting disease/condition affected by chronic disease/condition?: uneffected by Evaluation data The following diagnostics were reviewed and interpreted by me:: lab results Lab and/or radiology exams considered but not ordered:: None Interpretation Summary: See course Medications / Prescriptions Medications or Prescriptions considered but not ordered:: None Medication administrations:: None Consultations Consultation(s) initiated? (list below): No Diagnosis Differential diagnosis arrhythmia/palpitations: palpitations, anxiety, sinus tachycardia, artial fibrillation, artial flutter and ventricular premature beats Most likely diagnosis given after review of the tests above:: Palpitations Admission Indicated Admission indicated?: not indicated Admission Request Was there a request for admission?: No Disposition Plan Disposition Plan: other (specify) (Patient signed out to Dr. Michele pending lab results.) Discharge Plan Prescriptions/Referrals Prescriptions/Med Rec: No Action clonidine HCl 0.1 mg tablet 0.1 mg PO BID Qty: 60 0RF alprazolam [Xanax] 0.5 mg tablet 0.5 mg PO BID PRN (Reason: anxiety) Qty: 20 0RF Referrals: Gordon Puckett PA-C [Primary Care Provider] - In 1 week Problem List Clinical Impression: Palpitations Patient/Caregiver Discharge Instructions Print Language: Portuguese
--- NOTE | 2024-11-12 16:43 | PD.EDADULT ---
ED General RME/HPI General Chief complaint: Arrhythmia/Palpitations Stated complaint: RAPID HEARTRATE Time Seen by Provider: 11/12/24 15:34 Arrival date/time: 11/12/24 15:29 RME / HPI RME / HPI narrative: Intermittent palpitations for the past week. Reports heartburn. Hx HTN DR. ROBISON MAIN ED EVALUATION: 44-year-old female with a history of hypertension presents with 3 episodes over the past week of elevated blood pressure and heart rate (up to 120 bpm). She states that while sleeping she woke up from the tachycardia and associated sweating. Each episode lasts approximately 15?20 minutes. She reports a burning chest that began last night and persists. She denies any actual chest pain, palpitations, dizziness, or syncope. Home medications include Lisinopril 40 mg, Amlodipine 5 mg, HCTZ 25 mg, and Clonidine 0.1 mg BID. Related Data Previous Rx's ?Medication ?Instructions ?Recorded alprazolam 0.5 mg tablet (Xanax) 0.5 mg PO BID PRN anxiety #20 tabs 11/05/24 clonidine HCl 0.1 mg tablet 0.1 mg PO BID #60 tabs 11/05/24 Allergies Allergy/AdvReac Type Severity Reaction Status Date / Time No Known Allergies Allergy Verified 11/12/24 15:32 Review of Systems Review of Systems Systems Reviewed: All systems reviewed, normal except as documented Past Medical History Past Medical History CARDIAC: Positive Cardiac Disorders and Hypertension Social History SMOKING STATUS: Never smoker SUBSTANCE USE: does not use ALCOHOL: Never ED Exam Narrative Physical exam: Constitutional: Awake, alert, nontoxic, no acute distress HEENT: NC, AT, EOMI Neck: Supple CV: tachycardic Lungs: CTAB, no w/r/r, no respiratory distress. Abd: Soft, NT, NT, no HSM noted to palpation Extremities: No deformities, no edema noted Neuro: AAOx3, CN 2-12 GIBL, no acute neuro deficit noted. Skin: Warm, dry, intact Course Course Course Narrative: 1635h: lisin Quality Measures none Orders Category Date Time Status EKG (ED ONLY) *Do not use* NOW Care 11/12/24 15:33 Completed CXR [XR chest 1V] Stat Exams 11/12/24 15:37 Completed EKG (ED Only) Stat Exams 11/12/24 15:33 Draft BNP [B-Type Natriuretic Peptide] Stat Lab 11/12/24 16:08 Completed CBC Stat Lab 11/12/24 16:08 Completed CMP [Comprehensive Metabolic Panel] Stat Lab 11/12/24 16:08 Results Free T4 (Free Thyroxine) Stat Lab 11/12/24 16:08 Results HCG,Qualitative Serum Stat Lab 11/12/24 16:08 Results Magnesium Stat Lab 11/12/24 16:08 Results TSH [Thyroid Stimulating Hormone] Stat Lab 11/12/24 16:08 Results Troponin I Stat Lab 11/12/24 16:08 Results Vital Signs Vital signs: Vital Signs Temperature 99 F 11/12/24 15:38 Pulse Rate 113 H 11/12/24 15:38 Respiratory Rate 18 11/12/24 15:38 Blood Pressure 163/96 H 11/12/24 15:38 Pulse Oximetry (%) 97 11/12/24 15:38 Discharge Plan Prescriptions/Referrals Prescriptions/Med Rec: No Action clonidine HCl 0.1 mg tablet 0.1 mg PO BID Qty: 60 0RF alprazolam [Xanax] 0.5 mg tablet 0.5 mg PO BID PRN (Reason: anxiety) Qty: 20 0RF Referrals: Gordon Puckett PA-C [Primary Care Provider] - In 1 week Patient/Caregiver Discharge Instructions Print Language: Pashto MDM Narrative [facility] hospital course: I, Eula Pond am scribing for and in the presence of Dr. Robison. Clinical Information Provided by patient Medical Records Reviewed [facility] Meds/Rx Considered, not Ordered None Labs/Rad/Tests considered, not Ordered None Chronic Illness/Social Conditions Add or document further as needed: Hypertension. Home medications include Lisinopril 40 mg, Amlodipine 5 mg, HCTZ 25 mg, and Clonidine 0.1 mg BID. EKG EKG Interpretation narrative: My interpretation: EKG performed at 1539 hours, sinus tachycardia, rate 103, no STEMI Lab Interpretation Labs: see narrative above Imaging Radiology reports / interpretation(s): Procedure(s): XR chest 1V Accession Number(s): [id number] cc: Gordon Puckett PA-C; Alex Miller MD; Eric Celis PA-C~ Examination: PA chest single view TECHNIQUE: Upright PA chest single view Date and time: November 15, 2024 1612 hours INDICATIONS: Burning sensation in the chest. FINDINGS: Fat pad at the left cardiac apex. Normal heart size. No pneumonia or pulmonary edema The osseous structures are intact IMPRESSION: No interval pneumonia or pulmonary edema Dictated By: Alex Miller MD Medication Administration(s) none Diagnosis Differential dx and/or dx ruled out: Pheochromocytoma, panic attacks, and hypertensive urgency with nocturnal symptoms. Most likely dx, and/or detailed dx discussion: Palpitations Dispositon Disposition: Discharge Home
[2024-11-12 17:10] LABS: B-Type Natriuretic Peptide < 20 pg/mL (0-100)
[2024-11-12 17:13] LABS: HCG,Qualitative Serum Negative
[2024-11-12 17:59] VITALS: BP 135/88; PULSE 90; RESP 18; TEMP 36.7; O2SAT 98
[2024-11-12 17:59] LABS: Alanine Aminotransferase 19 U/L (10-49); Albumin, Serum 5.6 gm/dL (3.5-5.0); Albumin/Globulin Ratio 2.1 (1.2-2.2); Alkaline Phosphatase 122 U/L (46-116); Anion Gap 13 (7-16); Aspartate Amino Transferase 12 U/L (0-34); BUN/Creatinine Ratio 13 Ratio (12-20); Bilirubin,Total 0.9 mg/dL (0.3-1.2); Blood Urea Nitrogen 13 mg/dL (9-23); Calcium 10.8 mg/dL (8.3-10.6); Calcium (Corrected) 10.8 mg/dL (8.5-10.1); Carbon Dioxide 23.0 mMol/L (20.0-31.0); Chloride 97 mMol/L (98-107); Creatinine (Component) 1.0 mg/dL (0.6-1.3); Estimated Creatinine Clearance 66.9 mL/min (>60); Free T4 (Free Thyroxine) 1.93 ng/dL (0.89-1.76); Globulin 2.7 gm/dL (2.3-3.5); Glucose 111 mg/dL (74-106); Magnesium 2.2 mg/dL (1.6-2.6); Osmolality,Calculated 267 (275-295); Potassium 4.4 mMol/L (3.4-5.1); Sodium 133 mMol/L (136-145); Thyroid Stimulating Hormone 0.92 uIU/mL (0.55-4.78); Total Protein 8.3 gm/dL (5.7-8.2); Troponin I < 0.002 ng/mL (0.0-0.045); eGFR > 60 See Note
--- NOTE | 2024-11-12 19:36 | PD.EDADDENDU ---
Emergency Room Addendum Addendum Narrative: Patient was signed out to me awaiting labs for palpitations. Cardiac workup was unremarkable. Magnesium was normal. Patient's blood pressure was reasonable. She does have a history of hypertension. TSH was normal. Chest x-ray is normal. EKG is nonischemic without ectopy. Patient is stable for discharge. Continue current medications. She is stable to follow-up with primary care for further treatment and evaluation.
== END 2024-11-12 21:05 | disposition home or self-care (01) ==
PROVIDERS: Physician Assistant; Emergency Provider Family Medicine; PCP Physician Assistant
DX: R00.2 Palpitations (principal); I10 Essential (primary) hypertension; K21.9 Gastro-esophageal reflux disease without esophagitis; Z79.899 Other long term (current) drug therapy
CPT/HCPCS: 36415; 71045; 80053; 83735; 83880; 84439; 84443; 84484; 84703; 85025; 93005; 99283

== ENCOUNTER 2024-11-16 12:14 | Emergency (ER) | payer OTHER, SELFPAY ==
--- NOTE | 2024-11-16 12:50 | EKG_ITS ---
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
--- NOTE | 2024-11-16 12:50 | XR_ITS ---
Examination: PA lateral chest 2 views TECHNIQUE: Upright PA lateral chest 2 views Date and time: November 16, 2024 1308 hours INDICATIONS: Chest pain cardiac palpitations today. FINDINGS: Normal heart size No pneumonia or pulmonary edema Mild thoracic spondylosis IMPRESSION: No active disease.
--- NOTE | 2024-11-16 12:51 | PD.EDRME ---
Rapid Medical Screening Exam RME Arrival date/time: 11/16/24 12:14 44-year-old female presents to the emergency department today for complaints of chest pressure and palpitations Chief Complaint: Anxiety
[2024-11-16 12:52] VITALS: BP 163/103; PULSE 117; RESP 18; TEMP 37.1; O2SAT 97; BMI 33.7
[2024-11-16 13:49] LABS: Basophils # (Auto) 0.1 Thou/mm3 (0.0-0.2); Basophils % (Auto) 1 % (0-2.5); Eosinophils # (Auto) 0.1 Thou/mm3 (0.0-0.5); Eosinophils % (Auto) 1 % (0-10); Hematocrit 46.6 % (36.0-46.0); Hemoglobin 16.7 g/dL (12.0-16.0); Immature Granulocytes Auto 0.02 Thou/mm3 (0.00-0.00); Lymphocytes # (Auto) 2.2 Thou/mm3 (1.0-4.8); Lymphocytes % (Auto) 22 % (10-50); Mean Corpuscular HGB Conc 35.8 g/dl (31.0-37.0); Mean Corpuscular Hemoglobin 31.8 pg (25.0-35.0); Mean Corpuscular Volume 89 fL (80-100); Monocytes # (Auto) 1.0 Thou/mm3 (0.0-0.8); Monocytes % (Auto) 10 % (0-12); Neutrophils # (Auto) 6.9 Thou/mm3 (1.8-7.7); Neutrophils % (Auto) 67 % (37-80); Nucleated Red Blood Cell # 0.00 Thou/mm3 (0.00-0.00); Nucleated Red Blood Cell % 0 /100 WBC (0); Platelet Count 274 Thou/mm3 (140-440); RDW Standard Deviation 38.5 fL (36.4-46.3); Red Blood Count 5.25 Miln/mm3 (4.00-5.20); White Blood Count 10.3 Thou/mm3 (3.6-11.0)
--- NOTE | 2024-11-16 13:56 | PD.EDARRY ---
ED Arrhythmia Palp. RME/HPI General Chief Complaint: Anxiety Stated Complaint: HTN, anxiety, palpitations, faint Time Seen by Provider: 11/16/24 13:28 Arrival date/time: 11/16/24 12:14 Limitations: no limitations RME / HPI RME / HPI narrative: 11/16/24 12:14 44-year-old female presents to the emergency department today for complaints of chest pressure and palpitations DR. CANSECO MAIN ED EVALUATION: 44 year old female with history of hypertension presents to the ED for evaluation of intermittent chest pressure and palpitations. States in the last 24 hours symptoms are occurring more frequently, prompting ED visit. Accompanied by feeling globally weak that is worse with walking. Patient mentioned she had experienced similar symptoms before and consulted with PCP who has referred her to see a wall and floor tiler; has an appointment this coming Friday11/19/2024. Patient additionally reports she is not eating or sleeping well in the last several days and is constantly worrying about the palpitations, unsure if that is attributing to her symptoms. Related Data Previous Rx's ?Medication ?Instructions ?Recorded alprazolam 0.5 mg tablet (Xanax) 0.5 mg PO BID PRN anxiety #20 tabs 11/05/24 clonidine HCl 0.1 mg tablet 0.1 mg PO BID #60 tabs 11/05/24 Allergies Allergy/AdvReac Type Severity Reaction Status Date / Time No Known Allergies Allergy Verified 11/16/24 12:21 Review of Systems Review of Systems Systems Reviewed: All systems reviewed, normal except as documented Past Medical History Past Medical History CARDIAC: Positive Cardiac Disorders and Hypertension Social History SMOKING STATUS: Never smoker ED Exam General Limitations: Present no limitations General appearance: Present alert and in no apparent distress Head Head exam: Present atraumatic, normocephalic and normal inspection Eye Eye exam: Present normal appearance and EOMI ENT ENT exam: Present normal exam, normal oropharynx and mucous membranes moist Neck Neck exam: Present normal inspection, full ROM and trachea midline Chest Chest inspection: Present normal inspection and symmetric chest wall rise Respiratory Respiratory exam: Present normal lung sounds bilaterally Cardiovascular Cardiovascular exam: Present regular rate, normal rhythm and normal heart sounds Abdominal Exam Abdominal exam: Present soft and normal bowel sounds Extremities Exam Extremities exam: Present normal inspection and full ROM Back Exam Back exam: Present normal inspection and full ROM Neurological Exam Neurological exam: Present alert, oriented X3 and CN II-XII intact Psychiatric Psychiatric exam: Present normal affect and normal mood Skin Skin exam: Present warm, dry, intact and normal color Course Quality Measures none Orders Category Date Time Status EKG (ED ONLY) *Do not use* NOW Care 11/16/24 12:50 Completed EKG (ED Only) Stat Exams 11/16/24 12:50 Draft XR chest 2V Stat Exams 11/16/24 12:50 Completed CBC Stat Lab 11/16/24 13:40 Completed Comprehensive Metabolic Panel Stat Lab 11/16/24 13:40 Received Drug Screen,Urine Stat Lab 11/16/24 12:50 Ordered HCG,Qualitative Serum Stat Lab 11/16/24 13:40 Received Troponin I Stat Lab 11/16/24 13:40 Received Vital Signs Vital signs: Vital Signs Temperature 98.7 F 11/16/24 12:52 Pulse Rate 117 H 11/16/24 12:52 Respiratory Rate 18 11/16/24 12:52 Blood Pressure 163/103 H 11/16/24 12:52 Pulse Oximetry (%) 97 11/16/24 12:52 Oxygen Delivery Method Room Air 11/16/24 12:52 Arrhythmia/Palpitations MDM Narrative MDM Narrative:: Maci Abraham am scribing for and in the presence of Dr. Canseco. Patient remains clinically stable throughout the emergency department visit. We reviewed all the results, analysis, and treatment plans. Patient is amenable to discharge. Strict return precautions were outlined. Patient was discharged in stable condition. Patient data External records reviewed:: [facility] previous records (I reviewed ED visit on 11/12/2024 for palpitations ) Clinical information provided by:: patient Social determinants that could affect healthcare access:: mental health (anxiety ) Patient has the following chronic illnesses:: Hypertension How is presenting disease/condition affected by chronic disease/condition?: exacerbated by Evaluation data The following diagnostics were reviewed and interpreted by me:: lab results, radiology exam(s) and EKG tracing(s) (11/16/2024 @ 12:55h. Sinus tachycardia, rate 116, no STEMI. ) Lab and/or radiology exams considered but not ordered:: None Interpretation Summary: Ordering Physician: Gordon Moran NP, NP Date of Service: 11/16/24 Procedure(s): XR chest 2V Accession Number(s): [id number] cc: Luisa (INTERCEPTOR OPERATOR),Gordon INTERCEPTOR OPERATOR; Alex Miller MD; NO PRIMARY/FAMILY,PHYSICIAN~ Examination: PA lateral chest 2 views TECHNIQUE: Upright PA lateral chest 2 views Date and time: November 16, 2024 1308 hours INDICATIONS: Chest pain cardiac palpitations today. FINDINGS: Normal heart size No pneumonia or pulmonary edema Mild thoracic spondylosis IMPRESSION: No active disease. Dictated By: Alex Miller MD Signed By: <Electronically signed by Alex Miller MD in OV> 11/16/24 1351 Medications / Prescriptions Medications or Prescriptions considered but not ordered:: None Medication administrations:: None Consultations Consultation(s) initiated? (list below): No Diagnosis Most likely diagnosis given after review of the tests above:: Hypercalcemia Admission Indicated Admission indicated?: not indicated Admission Request Was there a request for admission?: No Disposition Plan Disposition Plan: Discharge Discharge Attestation Discharge Attestation: The patient and all family members were given an opportunity to ask questions and understood the discharge instructions. Discharge instructions specifically effects, indications for sooner follow up or return to the emergency department, and the expected course of current diagnosis. Patient condition: Stable Critical Care Time Critical Care Time Critical Care Time: No Discharge Plan Plan Patient Disposition: HOME (Self Care) Prescriptions/Referrals Prescriptions/Med Rec: No Action clonidine HCl 0.1 mg tablet 0.1 mg PO BID Qty: 60 0RF alprazolam [Xanax] 0.5 mg tablet 0.5 mg PO BID PRN (Reason: anxiety) Qty: 20 0RF Referrals: No Primary/Family,Physician [Primary Care Provider] - In 1 week Problem List Clinical Impression: Hypercalcemia Patient/Caregiver Discharge Instructions Education Materials: Hypercalcemia Dc Additional Instructions: Drink plenty of fluids. Follow-up with your primary care doctor in 2-3 days for further further work-up regarding elevated calcium levels. You can return to the emergency department sooner if symptoms worsen or if you notice any new, concerning issues. Print Language: Lebanese Stand Alone Forms: Nancy Award Info., Work/School Release, Patient Portal Info Letter
[2024-11-16 14:09] LABS: Alanine Aminotransferase 19 U/L (10-49); Albumin, Serum 5.5 gm/dL (3.5-5.0); Albumin/Globulin Ratio 2.0 (1.2-2.2); Alkaline Phosphatase 127 U/L (46-116); Anion Gap 13 (7-16); Aspartate Amino Transferase 16 U/L (0-34); BUN/Creatinine Ratio 16 Ratio (12-20); Bilirubin,Total 0.6 mg/dL (0.3-1.2); Blood Urea Nitrogen 13 mg/dL (9-23); Calcium 11.0 mg/dL (8.3-10.6); Calcium (Corrected) 11.0 mg/dL (8.5-10.1); Carbon Dioxide 24.4 mMol/L (20.0-31.0); Chloride 96 mMol/L (98-107); Creatinine (Component) 0.8 mg/dL (0.6-1.3); Estimated Creatinine Clearance 81.4 mL/min (>60); Globulin 2.7 gm/dL (2.3-3.5); Glucose 138 mg/dL (74-106); Osmolality,Calculated 268 (275-295); Potassium 3.9 mMol/L (3.4-5.1); Sodium 133 mMol/L (136-145); Total Protein 8.2 gm/dL (5.7-8.2); Troponin I < 0.002 ng/mL (0.0-0.045); eGFR > 60 See Note
[2024-11-16 14:26] LABS: HCG,Qualitative Serum Negative
[2024-11-16 14:30] LABS: Amphetamine/Methamp Scrn,U Negative (Negative); Barbiturate Screen,Urine Negative (Negative); Benzodiazepines Screen,Urine Negative (Negative); Benzoylecgonine Screen, Ur Negative (Negative); Fentanyl Screen,Urine Negative (Negative); Opiate Screen,Urine Negative (Negative); THC Screen,Urine Negative (Negative)
[2024-11-16 14:41] LABS: Thyroid Stimulating Hormone 0.69 uIU/mL (0.55-4.78)
[2024-11-16 16:42] VITALS: BP 136/84; PULSE 99; RESP 17; TEMP 36.9; O2SAT 100
[2024-11-16 17:25] VITALS: BP 136/84; PULSE 99
== END 2024-11-16 17:29 | disposition home or self-care (01) ==
PROVIDERS: Nurse Practitioner Primary Care; Emergency Provider Family Medicine
DX: E83.52 Hypercalcemia (principal); R00.2 Palpitations; R53.1 Weakness; I10 Essential (primary) hypertension; F41.9 Anxiety disorder, unspecified
CPT/HCPCS: 36415; 71046; 80053; 80307; 84443; 84484; 84703; 85025; 93005; 99283; A9270

== ENCOUNTER 2024-11-24 02:17 | Emergency (ER) | payer OTHER, SELFPAY ==
[2024-11-24 02:25] VITALS: PULSE 95; RESP 16; O2SAT 98; BMI 23.3
[2024-11-24 02:26] VITALS: BP 128/88; PULSE 94; RESP 16; TEMP 37.2; O2SAT 99; BMI 28.9
--- NOTE | 2024-11-24 02:39 | XR_ITS ---
Examination: CTA chest with intravenous contrast 2-D reconstructions 3-D reconstructions, vascular Date and time of exam: November 24, 2024, 0509 hours INDICATIONS: Shortness of breath nausea dizziness chest pain syncopal episodes today CTDI: vol (mGy) 10 DLP: (mGycm) 357 Technique: Multiple axial sections of the thorax have been obtained. 3 mm slice thickness, from below the hemidiaphragms to above the apices of the lungs. Mediastinal and lung density settings have been obtained. 2-D sagittal and coronal reconstructions. 3-D angiographic renderings, 3-D volume renderings, 3D post processing, vascular maximum intensity projections obtained. Contrast administered is 100 cc Isovue-370 intravenous. Low dose protocols were performed. One or more of the following dose reduction techniques were used; automated exposure control, adjustment of the mA and/or KV according to patient size, use of iterative reconstruction technique. Findings: No thoracic aortic aneurysmal dilatation or dissection. No pulmonary artery filling defects. No paratracheal tracheobronchial or bronchopulmonary adenopathy No pneumonia or pulmonary edema or pleural disease No gallstones No visualized liver or splenic lesion. Kidneys partially visualized no hydronephrosis Intact osseous structures IMPRESSION: Negative for pulmonary artery emboli No pneumonia or pulmonary edema or pleural disease
--- NOTE | 2024-11-24 02:39 | XR_ITS ---
Examination: CT brain head without contrast. 2-D sagittal coronal reconstructions Date and time of exam:November 24, 2024, 0508 hours, comparison November 05, 2024 INDICATIONS: Nausea dizziness beginning today. CTDI: vol (mGy):48.2 DLP: (mGycm):937 Technique: Multiple CT axial sections of the brain have been obtained, 5 mm slice thickness. Contrast has not been administered. 2-D sagittal, coronal reconstructions have been obtained Low dose protocols were performed. One or more of the following dose reduction techniques were used; automated exposure control, adjustment of the mA and/or KV according to patient size, use of iterative reconstruction technique. Findings: No significant ventricular enlargement. Intra-axial or extra-axial hemorrhage density is not seen. No mass effect or midline shift Basal cisterns are not remarkable. Fourth ventricle is midline. Cranial vault intact. Impression: Negative for acute hemorrhage, mass effect or midline shift Advise clinical correlation follow-up accordingly
--- NOTE | 2024-11-24 02:39 | EKG_ITS ---
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
--- NOTE | 2024-11-24 02:39 | PD.EDDIZZY ---
ED Dizzyness RME/HPI General Chief Complaint: Nausea/Vomiting/Diarrhea Stated Complaint: nausea and dizziness Time Seen by Provider: 11/24/24 02:37 Arrival date/time: 11/24/24 02:17 44F with history of HTN presents to ED with 1 day of lightheadedness/near-syncope and N/V. Patient has been here multiple times in the past few weeks for this. Patient denies ab pain. Patient had a neg D-dimer and CTA on the , but returned with worsening symptoms on the . D-dimer was elevated to about 1.6k, but no additional work-up was done. Limitations: no limitations Related Data Home Medications ?Medication ?Instructions ?Recorded ?Confirmed amlodipine 5 mg tablet 5 mg PO BID 11/24/24 11/24/24 hydrochlorothiazide 50 mg tablet 50 mg PO QDAY 11/24/24 11/24/24 lisinopril 40 mg tablet 40 mg PO QDAY 11/24/24 11/24/24 metoprolol succinate 50 mg 50 mg PO QDAY 11/24/24 11/24/24 tablet,extended release 24 hr Previous Rx's ?Medication ?Instructions ?Recorded alprazolam 0.5 mg tablet (Xanax) 0.5 mg PO BID PRN anxiety #20 tabs 11/05/24 clonidine HCl 0.1 mg tablet 0.1 mg PO BID #60 tabs 11/05/24 Allergies Allergy/AdvReac Type Severity Reaction Status Date / Time No Known Allergies Allergy Verified 11/24/24 02:25 Review of Systems Review of Systems Systems Reviewed: All systems reviewed, normal except as documented Constitutional Constitutional: Reports system reviewed and no additional complaints, except as documented, Reports as per HPI, Reports fatigue, Denies fever(s) and Denies headache(s) ENT Ears, Nose, Mouth, and Throat: Reports as per HPI, Denies disequilibrium, Denies headache(s) and Reports vertigo Cardiovascular Cardiovascular: Reports system reviewed and no additional complaints, except as documented, Denies chest pain and Denies dyspnea Respiratory Respiratory: Reports system reviewed and no additional complaints, except as documented, Denies cough and Denies dyspnea Gastrointestinal Gastrointestinal: Reports system reviewed and no additional complaints, except as documented, Denies abdominal pain, Denies nausea and Denies vomiting Neurologic Neurologic: Reports system reviewed and no additional complaints, except as documented, Denies confusion, Denies disequilibrium, Denies headache(s) and Reports vertigo Psychiatric Psychiatric: Denies confusion Endocrine Endocrine: Reports fatigue Past Medical History Past Medical History CARDIAC: Positive Cardiac Disorders and Hypertension; Negative Congestive Heart Failure RESPIRATORY: Negative Chronic Obstructive Pulmonary Disease (COPD) or Asthma GENITOURINARY: Negative Renal Disease ENDOCRINE: Negative Diabetes Mellitus Type 1 or Diabetes Mellitus Type 2 HEMATOLOGIC: Negative Sickle Cell Disease Social History SMOKING STATUS: Never smoker ED Exam General Limitations: Present no limitations General appearance: Present alert and in no apparent distress Head Head exam: Present atraumatic Eye Eye exam: Present normal appearance, PERRL and EOMI ENT ENT exam: Present normal exam, normal oropharynx and mucous membranes moist Neck Neck exam: Present normal inspection, full ROM and trachea midline Chest Chest inspection: Present normal inspection and symmetric chest wall rise Respiratory Respiratory exam: Present normal lung sounds bilaterally Cardiovascular Cardiovascular exam: Present regular rate, normal rhythm and normal heart sounds Abdominal Exam Abdominal exam: Present soft and normal bowel sounds Extremities Exam Extremities exam: Present normal inspection and full ROM Back Exam Back exam: Present normal inspection and full ROM Neurological Exam Neurological exam: Present alert, oriented X3 and CN II-XII intact Psychiatric Psychiatric exam: Present normal affect and normal mood Skin Skin exam: Present warm, dry, intact and normal color Course Quality Measures none Orders Category Date Time Status CT Screening NOW Care 11/24/24 02:39 Completed EKG (ED ONLY) *Do not use* NOW Care 11/24/24 02:[address] angio chest Stat Exams 11/24/24 02:[address] head/brain wo con Stat Exams 11/24/24 02:39 Completed EKG (ED Only) Stat Exams 11/24/24 02:39 Draft Alcohol, Blood Medical Stat Lab 11/24/24 02:51 Completed B-Type Natriuretic Peptide Stat Lab 11/24/24 02:51 Completed CBC Stat Lab 11/24/24 02:51 Completed Comprehensive Metabolic Panel Stat Lab 11/24/24 02:51 Completed HCG Qualitative,Urine Stat Lab 11/24/24 03:45 Completed HCG,Qualitative Serum Stat Lab 11/24/24 03:49 Completed Magnesium Stat Lab 11/24/24 02:51 Completed Partial Thromboplastin Time Stat Lab 11/24/24 02:51 Completed Prothrombin Time with INR Stat Lab 11/24/24 02:51 Completed T4 (Thyroxine) Stat Lab 11/24/24 02:51 Completed TSH [Thyroid Stimulating Hormone] Stat Lab 11/24/24 02:51 Completed Troponin I Stat Lab 11/24/24 02:51 Completed Urinalysis, C/S if Indicated Stat Lab 11/24/24 03:45 Completed Potassium Chloride [K-Dur] Med 11/24/24 03:35 Discontinued 40 meq PO X1 ONE Ringers Lactated 1000 ml [Lactated Ringers] 1,000 ml Med 11/24/24 09:40 Discontinued IV 999 mls/hr Vital Signs Vital signs: Vital Signs Temperature 99 F 11/24/24 02:26 Pulse Rate 94 11/24/24 02:26 Respiratory Rate 16 11/24/24 02:26 Blood Pressure 128/88 H 11/24/24 02:26 Pulse Oximetry (%) 99 11/24/24 02:26 Oxygen Delivery Method Room Air 11/24/24 02:26 O2 at 99% on RA and WNLs Dizziness MDM Narrative MDM Narrative:: 44F with history of HTN presents to ED with 1 day of lightheadedness/near-syncope and N/V. Patient has been here multiple times in the past few weeks for this. Patient denies ab pain. Patient had a neg D-dimer and CTA on the , but returned with worsening symptoms on the . D-dimer was elevated to about 1.6k, but no additional work-up was done. Physical exam reveals normal pupil response and EOM. CN II-XII grossly intact. Speech normal. Normal WOB. Patient is afebrile, calm, and alert. EKG is NSR with non-specific ST-T changes. Trop normal. CTA no PE. Ct head normal. CMP unremarkable except K of 3.0, repleted. Mag normal. Care signed out to Dr. Vogel pending CTA read and dispo. Patient eventually discharged. Patient data External records reviewed:: [facility] previous records Clinical information provided by:: patient Social determinants that could affect healthcare access:: none Patient has the following chronic illnesses:: HTN How is presenting disease/condition affected by chronic disease/condition?: uneffected by Evaluation data The following diagnostics were reviewed and interpreted by me:: lab results, radiology exam(s) and EKG tracing(s) Lab and/or radiology exams considered but not ordered:: ordered Interpretation Summary: above Medications / Prescriptions Medications or Prescriptions considered but not ordered:: ordered Medication administrations:: Medication Administration History Discontinued Medications Lactated Ringer's (Lactated Ringers) 1,000 mls @ 999 mls/hr IV .Q1H1M ONE Stop: 11/24/24 10:40 Last Infusion: 11/24/24 11:45 Dose: Infused Documented By: Admin: 11/24/24 10:44 Dose: 999 mls/hr Documented By: JESÚS Potassium Chloride (Potassium Chloride 20 Meq Tabcr) 40 meq PO X1 ONE Stop: 11/24/24 03:36 Last Admin: 11/24/24 04:37 Dose: 40 meq Documented By: BD above Consultations Consultation(s) initiated? (list below): No Diagnosis Dizziness Differential Diagnosis: adverse reaction to drug, benign paroxysmal positional vertigo, orthostatic hypotension, vertebral basilar insufficiency, cerebrovascular accident, acute vestibular neuronitis, transient cerebral ischemia and other (PE, palps) Most likely diagnosis given after review of the tests above:: palps Admission Indicated Admission indicated?: not indicated Admission Request Was there a request for admission?: No Disposition Plan Disposition Plan: Discharge Discharge Attestation Discharge Attestation: The patient and all family members were given an opportunity to ask questions and understood the discharge instructions. Discharge instructions specifically effects, indications for sooner follow up or return to the emergency department, and the expected course of current diagnosis. Patient condition: Stable Discharge Plan Plan Patient Disposition: HOME (Self Care) Prescriptions/Referrals Prescriptions/Med Rec: No Action clonidine HCl 0.1 mg tablet 0.1 mg PO BID Qty: 60 0RF alprazolam [Xanax] 0.5 mg tablet 0.5 mg PO BID PRN (Reason: anxiety) Qty: 20 0RF lisinopril 40 mg tablet 40 mg PO QDAY Patient Comments: TAKE 1 TABLET BY MOUTH EVERY DAY FOR 30 DAYS metoprolol succinate 50 mg tablet extended release 24 hr 50 mg PO QDAY Patient Comments: TAKE 1 TABLET BY MOUTH EVERY DAY hydrochlorothiazide 50 mg tablet 50 mg PO QDAY Patient Comments: TAKE 1 TABLET BY MOUTH EVERY DAY FOR 30 DAYS amlodipine 5 mg tablet 5 mg PO BID Patient Comments: TAKE 1 TABLET BY MOUTH EVERY DAY FOR 30 DAYS Referrals: Gordon Puckett PA-C [Primary Care Provider] - In 1 week Problem List Clinical Impression: Palpitation Patient/Caregiver Discharge Instructions Education Materials: ED Palpitations Additional Instructions: Please call your manager global and discuss your visit to the emergency department. Please take your medication as prescribed. Please refrain from drinking alcohol for the next few weeks until you complete your studies that you will be performing with your manager global. It is important that you get your scheduled nuclear medicine stress test as well as your echocardiogram and Holter monitor. If you have any recurrence of symptoms or new symptoms of concern please return to the emergency department. Please make sure that you h maintain appropriate hydration. Print Language: Yemeni Stand Alone Forms: Nancy Award Info., Patient Portal Info Letter
[2024-11-24 03:17] LABS: Basophils # (Auto) 0.1 Thou/mm3 (0.0-0.2); Basophils % (Auto) 1 % (0-2.5); Eosinophils # (Auto) 0.1 Thou/mm3 (0.0-0.5); Eosinophils % (Auto) 2 % (0-10); Hematocrit 41.0 % (36.0-46.0); Hemoglobin 14.8 g/dL (12.0-16.0); Immature Granulocytes Auto 0.02 Thou/mm3 (0.00-0.00); Lymphocytes # (Auto) 2.9 Thou/mm3 (1.0-4.8); Lymphocytes % (Auto) 34 % (10-50); Mean Corpuscular HGB Conc 36.1 g/dl (31.0-37.0); Mean Corpuscular Hemoglobin 31.6 pg (25.0-35.0); Mean Corpuscular Volume 88 fL (80-100); Monocytes # (Auto) 0.7 Thou/mm3 (0.0-0.8); Monocytes % (Auto) 8 % (0-12); Neutrophils # (Auto) 4.9 Thou/mm3 (1.8-7.7); Neutrophils % (Auto) 56 % (37-80); Nucleated Red Blood Cell # 0.00 Thou/mm3 (0.00-0.00); Nucleated Red Blood Cell % 0 /100 WBC (0); Platelet Count 286 Thou/mm3 (140-440); RDW Standard Deviation 37.9 fL (36.4-46.3); Red Blood Count 4.68 Miln/mm3 (4.00-5.20); White Blood Count 8.7 Thou/mm3 (3.6-11.0)
[2024-11-24 03:31] LABS: B-Type Natriuretic Peptide < 20 pg/mL (0-100)
[2024-11-24 03:33] LABS: Alanine Aminotransferase 20 U/L (10-49); Albumin, Serum 4.9 gm/dL (3.5-5.0); Albumin/Globulin Ratio 2.0 (1.2-2.2); Alkaline Phosphatase 115 U/L (46-116); Anion Gap 10 (7-16); Aspartate Amino Transferase 12 U/L (0-34); BUN/Creatinine Ratio 14 Ratio (12-20); Bilirubin,Total 0.6 mg/dL (0.3-1.2); Blood Urea Nitrogen 11 mg/dL (9-23); Calcium 10.5 mg/dL (8.3-10.6); Calcium (Corrected) 10.5 mg/dL (8.5-10.1); Carbon Dioxide 26.9 mMol/L (20.0-31.0); Chloride 100 mMol/L (98-107); Creatinine (Component) 0.8 mg/dL (0.6-1.3); Estimated Creatinine Clearance 91.2 mL/min (>60); Globulin 2.4 gm/dL (2.3-3.5); Glucose 96 mg/dL (74-106); Magnesium 1.9 mg/dL (1.6-2.6); Osmolality,Calculated 273 (275-295); Potassium 3.0 mMol/L (3.4-5.1); Sodium 137 mMol/L (136-145); Total Protein 7.3 gm/dL (5.7-8.2); Troponin I < 0.002 ng/mL (0.0-0.045); eGFR > 60 See Note
[2024-11-24 03:35] LABS: INR 1.0 (0.9-1.3); Partial Thromboplastin Time 28.4 Seconds (22.0-36.0); Prothrombin Time 11.2 Seconds (9.0-12.2)
[2024-11-24 03:55] LABS: Alcohol, Blood Medical < 3.0 mg/dL (0-10.0)
[2024-11-24 03:55] LABS: Collection Type, Urine Clean Catch
[2024-11-24 04:00] VITALS: BP 156/89; PULSE 78; RESP 16; TEMP 37.2; O2SAT 99
[2024-11-24 04:04] LABS: Bilirubin,Urine Negative (Negative); Blood,Urine Negative (Negative); Clarity,Urine Clear (Clear/Hazy); Color,Urine Lt-Yellow (Lt Yel-Yel); Culture Indicated,Urine Not Indicated; Glucose, Urine Negative (Negative); Ketones,Urine Negative (Negative); Leukocyte Esterase,Urine Negative (Negative); Nitrite,Urine Negative (Negative); PH,Urine 6.5 (5.0-7.0); Protein,Urine Negative (Neg - Trace); RBC,Urine 1 /hpf (0-3); Specific Gravity,Urine 1.011 (1.001-1.035); Squamous Epithelial Cell,Urine 3 /hpf (0-5); Urobilinogen,Urine Negative mg/dL (0.0-1.0); WBC,Urine 2 /hpf (0-5)
[2024-11-24 04:13] LABS: HCG Qualitative,Urine Negative
[2024-11-24 04:19] LABS: HCG,Qualitative Serum Negative
--- NOTE | 2024-11-24 05:42 | PRELIM_ITS ---
CT scan of the head without intravenous contrast (axial sections with sagittal and coronal reformats). November 24, 2024 0508 hours Clinical History: Dizziness and near-syncope Compared with the prior study dated 11/05/2024 Findings: No evidence of intracranial hemorrhage, mass effect or midline shift. The ventricles and CSF spaces are unremarkable. The calvarium is unremarkable. The mastoid air cells and the visualized paranasal sinuses are clear. Impression: No evidence of intracranial hemorrhage, mass effect or midline shift. Report Electronically Signed By: Citlaly Blue 11/24/2024 5:41:36 AM [EST]
--- NOTE | 2024-11-24 05:57 | PRELIM_ITS ---
CT angiogram of the chest with intravenous contrast (axial sections with sagittal and coronal reformats) November 24, 2024 0509 hours Clinical History: Dizziness and elevated D-dimer Technique:Helical axial sections with sagittal and coronal reformats of the chest were obtained with intravenous contrast. Iterative reconstruction technique was employed to reduce patient radiation exposure. 3D/MIP reconstructed images were also provided. Compared with the prior study dated 11/05/2024 Findings: There is no filling defect within the pulmonary artery divisions to suggest pulmonary thromboembolism. The mediastinum demonstrates no evidence of mass or lymphadenopathy. The thoracic aorta is unremarkable. There is no pericardial effusion. The lungs are clear. No evidence of pleural effusion or pneumothorax. The osseous structures are unremarkable. The visualized upper abdominal viscera are unremarkable. Impression: No CT evidence of pulmonary thromboembolism or other acute intrathoracic pathology. Report Electronically Signed By: Citlaly Blue 11/24/2024 5:56:51 AM [EST]
[2024-11-24 06:00] VITALS: BP 148/96; PULSE 85; RESP 16; TEMP 37; O2SAT 100
--- NOTE | 2024-11-24 08:33 | PD.EDHA ---
ED Headache RME/HPI General Chief Complaint: Nausea/Vomiting/Diarrhea Stated Complaint: nausea and dizziness Time Seen by Provider: 11/24/24 02:37 Arrival date/time: 11/24/24 02:17 Limitations: no limitations RME / HPI RME / HPI Narrative: 44F with history of HTN presents to ED with 1 day of lightheadedness/near-syncope and N/V. Patient has been here multiple times in the past few weeks for this. Patient denies ab pain. Patient had a neg D-dimer and CTA on the , but returned with worsening symptoms on the . D-dimer was elevated to about 1.6k, but no additional work-up was done. Limitations: no limitations Denies f,c,n,v,cp,sob, dysuria, hematuria, melena, bloody stools, drugs. Does occasionally drink alcohol. Has been under a lot of stress, has a hard time sleeping. Is in the care of a elementary school principal and has a pending holter monitor, stress test and echo this week. Related Data Home Medications ?Medication ?Instructions ?Recorded ?Confirmed amlodipine 5 mg tablet 5 mg PO BID 11/24/24 11/24/24 hydrochlorothiazide 50 mg tablet 50 mg PO QDAY 11/24/24 11/24/24 lisinopril 40 mg tablet 40 mg PO QDAY 11/24/24 11/24/24 metoprolol succinate 50 mg 50 mg PO QDAY 11/24/24 11/24/24 tablet,extended release 24 hr Previous Rx's ?Medication ?Instructions ?Recorded alprazolam 0.5 mg tablet (Xanax) 0.5 mg PO BID PRN anxiety #20 tabs 11/05/24 clonidine HCl 0.1 mg tablet 0.1 mg PO BID #60 tabs 11/05/24 Allergies Allergy/AdvReac Type Severity Reaction Status Date / Time No Known Allergies Allergy Verified 11/24/24 02:25 ED Exam General Limitations: Present no limitations General appearance: Present alert and in no apparent distress Eye Eye exam: Present normal appearance and PERRL ENT ENT exam: Present normal exam Neck Neck exam: Present normal inspection and full ROM Chest Chest inspection: Present normal inspection and symmetric chest wall rise Respiratory Respiratory exam: Present normal lung sounds bilaterally and respiratory distress Cardiovascular Cardiovascular exam: Present regular rate and normal rhythm Abdominal Exam Abdominal exam: Present soft; Absent distention or tenderness Extremities Exam Extremities exam: Present normal inspection, full ROM and normal capillary refill; Absent tenderness Neurological Exam Neurological exam: Present alert, oriented X3 and CN II-XII intact; Absent motor sensory deficit Psychiatric Psychiatric exam: Present normal affect Skin Skin exam: Present warm and dry Course Quality Measures none Orders Category Date Time Status CT Screening NOW Care 11/24/24 02:39 Completed EKG (ED ONLY) *Do not use* NOW Care 11/24/24 02:[address] angio chest Stat Exams 11/24/24 02:[address] head/brain wo con Stat Exams 11/24/24 02:39 Completed EKG (ED Only) Stat Exams 11/24/24 02:39 Draft Alcohol, Blood Medical Stat Lab 11/24/24 02:51 Completed B-Type Natriuretic Peptide Stat Lab 11/24/24 02:51 Completed CBC Stat Lab 11/24/24 02:51 Completed Comprehensive Metabolic Panel Stat Lab 11/24/24 02:51 Completed HCG Qualitative,Urine Stat Lab 11/24/24 03:45 Completed HCG,Qualitative Serum Stat Lab 11/24/24 03:49 Completed Magnesium Stat Lab 11/24/24 02:51 Completed Partial Thromboplastin Time Stat Lab 11/24/24 02:51 Completed Prothrombin Time with INR Stat Lab 11/24/24 02:51 Completed T4 (Thyroxine) Stat Lab 11/24/24 02:51 Completed TSH [Thyroid Stimulating Hormone] Stat Lab 11/24/24 02:51 Completed Troponin I Stat Lab 11/24/24 02:51 Completed Urinalysis, C/S if Indicated Stat Lab 11/24/24 03:45 Completed Potassium Chloride [K-Dur] Med 11/24/24 03:35 Discontinued 40 meq PO X1 ONE Ringers Lactated 1000 ml [Lactated Ringers] 1,000 ml Med 11/24/24 09:40 Discontinued IV 999 mls/hr Vital Signs Vital signs: Vital Signs Temperature 99 F 11/24/24 02:26 Pulse Rate 94 11/24/24 02:26 Respiratory Rate 16 11/24/24 02:26 Blood Pressure 128/88 H 11/24/24 02:26 Pulse Oximetry (%) 99 11/24/24 02:26 Oxygen Delivery Method Room Air 11/24/24 02:26 Headache MDM Narrative MDM Narrative:: Patient is a 44-year-old female is in Emergency Department concerns for feeling lightheaded and dizzy and presyncopal. Patient vital signs and exam as listed. Patient was evaluated by prior provider. Ordered labs EKG head CT as well as CTA chest. Labs without any acute hematologic abnormality. Patient is hypokalemic, repleted in the emergency department. CT brain unremarkable, CTA chest without evidence of pulmonary embolus. EKG performed earlier today at 240 3 in the morning, sinus rhythm, normal intervals, nonspecific T wave changes, not a cardiac alert. On my evaluation patient hemodynamically stable, not in distress, symptoms completely resolved. Patient states that she is in the care of elementary school principal Dr. Zazueta. She just establish care. Is pending cardiac echo, nuclear medicine test as well as a Holter monitor. Patient was started on metoprolol she has been compliant with her medication. Patient states that she does not smoke or use drugs however she does occasionally drink a few drinks a week. No recent travel no sick contacts, no hemoptysis, no lower extremity swelling. Patient does not have any allergies to medications. Given patient is asymptomatic, I had joint decision making conversation with the patient, she has great follow-up with her elementary school principal, advised her to follow-up with her elementary school principal and let her know that she was seen in the emergency department. Recommended that she expedite her studies however they are coming up in the next week. Will order thyroid studies, and fluids. If normal will discharge to home with close return precautions and follow-up with her primary care doctor. Patient agreement, feels comfortable with treatment plan Patient data External records reviewed:: [facility] previous records Clinical information provided by:: patient Social determinants that could affect healthcare access:: alcohol use Patient has the following chronic illnesses:: Palpitations How is presenting disease/condition affected by chronic disease/condition?: exacerbated by Evaluation data The following diagnostics were reviewed and interpreted by me:: lab results, radiology exam(s) and EKG tracing(s) Lab and/or radiology exams considered but not ordered:: Not Interpretation Summary: See MDM Medications / Prescriptions Medications or Prescriptions considered but not ordered:: None Medication administrations:: Medication Administration History Discontinued Medications Lactated Ringer's (Lactated Ringers) 1,000 mls @ 999 mls/hr IV .Q1H1M ONE Stop: 11/24/24 10:40 Last Infusion: 11/24/24 11:45 Dose: Infused Documented By: Admin: 11/24/24 10:44 Dose: 999 mls/hr Documented By: JESSÚ Potassium Chloride (Potassium Chloride 20 Meq Tabcr) 40 meq PO X1 ONE Stop: 11/24/24 03:36 Last Admin: 11/24/24 04:37 Dose: 40 meq Documented By: LUCINDA See above Consultations Consultation(s) initiated? (list below): No Diagnosis Differential diagnosis headache: other (Intracranial hemorrhage, pulmonary embolus, dissection,) Most likely diagnosis given after review of the tests above:: se emdm Admission Indicated Admission indicated?: not indicated Admission Request Was there a request for admission?: No Disposition Plan Disposition Plan: Discharge Discharge Attestation Discharge Attestation: The patient and all family members were given an opportunity to ask questions and understood the discharge instructions. Discharge instructions specifically effects, indications for sooner follow up or return to the emergency department, and the expected course of current diagnosis. Patient condition: Stable Discharge Plan Plan Patient Disposition: HOME (Self Care) Prescriptions/Referrals Prescriptions/Med Rec: No Action clonidine HCl 0.1 mg tablet 0.1 mg PO BID Qty: 60 0RF alprazolam [Xanax] 0.5 mg tablet 0.5 mg PO BID PRN (Reason: anxiety) Qty: 20 0RF lisinopril 40 mg tablet 40 mg PO QDAY Patient Comments: TAKE 1 TABLET BY MOUTH EVERY DAY FOR 30 DAYS metoprolol succinate 50 mg tablet extended release 24 hr 50 mg PO QDAY Patient Comments: TAKE 1 TABLET BY MOUTH EVERY DAY hydrochlorothiazide 50 mg tablet 50 mg PO QDAY Patient Comments: TAKE 1 TABLET BY MOUTH EVERY DAY FOR 30 DAYS amlodipine 5 mg tablet 5 mg PO BID Patient Comments: TAKE 1 TABLET BY MOUTH EVERY DAY FOR 30 DAYS Referrals: Gordon Puckett PA-C [Primary Care Provider] - In 1 week Problem List Clinical Impression: Palpitation Patient/Caregiver Discharge Instructions Education Materials: ED Palpitations Additional Instructions: Please call your elementary school principal and discuss your visit to the emergency department. Please take your medication as prescribed. Please refrain from drinking alcohol for the next few weeks until you complete your studies that you will be performing with your elementary school principal. It is important that you get your scheduled nuclear medicine stress test as well as your echocardiogram and Holter monitor. If you have any recurrence of symptoms or new symptoms of concern please return to the emergency department. Please make sure that you h maintain appropriate hydration. Print Language: Luxembourgish Stand Alone Forms: Nancy Award Info., Patient Portal Info Letter
[2024-11-24 08:48] VITALS: BP 138/97; PULSE 87; RESP 16; TEMP 36.9; O2SAT 99
[2024-11-24 10:35] LABS: Thyroid Stimulating Hormone 1.92 uIU/mL (0.55-4.78)
[2024-11-24] MEDS: RINGERS LACTATED 1000 ML 1,000 ML 999 ML IV (10:44)
[2024-11-24 10:52] LABS: T4 (Thyroxine) 10.8 mcg/dL (4.5-10.9)
== END 2024-11-24 12:02 | disposition home or self-care (01) ==
PROVIDERS: Physician Assistant; Emergency Provider Emergency Medicine; PCP Physician Assistant
DX: R00.2 Palpitations (principal); R11.2 Nausea with vomiting, unspecified; R07.9 Chest pain, unspecified; R94.31 Abnormal electrocardiogram [ECG] [EKG]
CPT/HCPCS: 36415; 70450; 71275; 80053; 80320; 81001; 81025; 83735; 83880; 84436; 84443; 84484; 84703; 85025; 85610; 85730; 93005; 96360; 99284; A4649; J7120; Q9967; A9270; G0480

== ENCOUNTER → 2024-11-30 | Outpatient (CLI) | payer OTHER, SELFPAY ==
[2024-11-30 12:27] LABS: Misc Send Out* See Sep Rpt
[2024-12-06 09:10] LABS: Renin Activity, Plasma* 55.88 ng/mL/h (0.25-5.82)
== END | disposition home or self-care (01) ==
LOC: COPL 11:59
PROVIDERS: PCP Physician Assistant; Referring Provider Internal Medicine Cardiovascular Disease; Visit Provider Internal Medicine Cardiovascular Disease
DX: I1A.0 Resistant hypertension (principal)
CPT/HCPCS: 36415; 84244